=== PATIENT | male | born 1975 | race Caucasian/White ===

== ENCOUNTER 2017-04-02 20:32 | Emergency (ER) | payer MEDICARE ==
[~2017-04-02] VITALS: Ht 175.3 cm; Wt 72.6 kg
[2017-04-02] MEDS ORDERED: ASPIRIN 325 MG TABLET ONE (21:12)
--- NOTE | 2017-04-02 21:21 | NUR ---
PT IS VERBALLY ABUSIVE TOWARDS STAFF. REASSIGN THE PT TO ANOTHER NURSE.
[2017-04-02] MEDS ORDERED: ASPIRIN 325 MG TABLET PO ONE (21:30)
[2017-04-02] MEDS ORDERED: LORAZEPAM INJ 2 MG/ML VIAL IV ONE (21:30)
--- NOTE | 2017-04-02 21:30 | NUR ---
PT REFUSED CHEST XRAY.
--- NOTE | 2017-04-02 21:31 | NUR ---
PT REFUSING CXR, RN BENJA IS AWARE.
--- NOTE | 2017-04-02 21:31 | NUR ---
PT REFUSED IV INSERTION IN THE UPPER EXTREMITIES. TRIED INSERTING AN IV IN THE LEG WHERE HE PREFERS TO GET POKED. IV INSERTION ATTEMPTED FEW TIMES AND UNABLE TO GET A PATENT LINE.
[2017-04-02] MEDS ORDERED: LORAZEPAM INJ 2 MG/ML VIAL ONE (21:40)
[2017-04-02] MEDS ORDERED: LORAZEPAM INJ 2 MG/ML VIAL IM ONE (22:00)
[2017-04-02 23:57] LABS: BASOPHILS % (AUTO) 0.5 % (0.0-2.0); EOSINOPHILS # (AUTO) 0.2 /CMM (0.0-0.7); EOSINOPHILS % (AUTO) 2.7 % (0.0-6.0); HEMATOCRIT 33 % (39-51); HEMOGLOBIN 10.8 g/dL (13.5-17.5); LYMPHOCYTES # (AUTO) 1.5 /CMM (0.8-4.8); LYMPHOCYTES % (AUTO) 18.9 % (20.0-44.0); MEAN CORPUSCULAR HEMOGLOBIN 25 PG (26.0-33.0); MEAN CORPUSCULAR HGB CONC 33 g/dl (31.0-36.0); MEAN CORPUSCULAR VOLUME 76 fL (80-96); MONOCYTES # (AUTO) 0.4 /CMM (0.1-1.30); MONOCYTES % (AUTO) 4.8 % (2.0-12.0); NEUTROPHILS # (AUTO) 5.8 /CMM (1.8-8.9); NEUTROPHILS % (AUTO) 73.1 % (43.0-81.0); PLATELET COUNT (AUTO) 311 /CMM (150-450); RDW COEFFICIENT OF VARIATION 26.4 (11.5-15.0); RED BLOOD CELL COUNT(AUTO) 4.25 MIL/uL (4.5-6.0); WHITE BLOOD COUNT (AUTO) 7.9 K/uL (4.3-11.0)
--- NOTE | 2017-04-03 | NUR ---
22G LEFT LOWER LEG IV STARTED. BLOOD SAMPLE OBTAINED AND SENT TO LAB
[2017-04-03 00:09] LABS: CALCIUM, SERUM 8.8 mg/dL (8.5-10.1); CARBON DIOXIDE 25 mmol/L (21-32); CHLORIDE 111 mmol/L (98-107); CREATININE 0.9 mg/dL (0.6-1.3); GLUCOSE 110 mg/dL (74-106); POTASSIUM 3.6 mmol/L (3.5-5.1); SODIUM SERUM 146 mmol/L (136-145); UREA NITROGEN, BLOOD 14 mg/dL (7-18)
[2017-04-03 00:18] LABS: TROPONIN I < 0.017 ng/mL (0.00-0.056)
[2017-04-03 00:30] LABS: INR 1.02 (0.87-1.13); PROTHROMBIN TIME 10.6 SECS (9.5-12.7)
--- NOTE | 2017-04-03 04:13 | NUR ---
Patient discharged to home in stable condition. Written and verbal after care instructions given. Patient verbalizes understanding of instruction.IV removed. Catheter intact and site benign. Pressure and 4x4 applied to site. No bleeding noted.
[2017-04-03] MEDS ORDERED: LORA2TAB PO (13:45)
== END 2017-04-03 04:14 | disposition home or self-care (01) ==
LOC: ER 20:39
DX: R07.2 Precordial pain (principal); Z88.1 Allergy status to other antibiotic agents
CPT/HCPCS: 36415; 80048; 84484; 85025; 85730; 93005; 96372; 99285; J2060

== ENCOUNTER 2017-04-03 08:03 | Inpatient (IN) | payer MEDICARE ==
[~2017-04-03] VITALS: Ht 170.2 cm; Wt 72.6 kg
[2017-04-03] MEDS ORDERED: LORAZEPAM INJ 2 MG/ML VIAL IM ONE (08:30)
[2017-04-03] MEDS ORDERED: LORAZEPAM INJ 2 MG/ML VIAL ONE (08:35)
--- NOTE | 2017-04-03 11:00 | NUR ---
assume pt care. sleeping in bed. was given ativan. here for medication refill for ativan and wants a place to sleep. on monitor. stable vital. will continue to monitor.
--- NOTE | 2017-04-03 12:43 | NUR ---
pt is sleeping. on monitor w/ stable vitals. will cont to monitor.
--- NOTE | 2017-04-03 13:25 | NUR ---
pt is ok for discharge. pt states "im not feeling well and my wheelchaidr is not working." "i need to talk to a older adult social work specialist." md becker made aware.
--- NOTE | 2017-04-03 13:30 | NUR ---
PAGED SOPHIE GENERAL SERVICE OFFICER
[2017-04-03] MEDS ORDERED: LORA2TAB PO (13:45)
--- NOTE | 2017-04-03 14:25 | NUR ---
CALLED [employer] SUPERVISOR BRINE WAS PAGED.
--- NOTE | 2017-04-03 14:45 | NUR ---
pt is refusing body check stating "i dont have pressure sore in my buttocks, i have sores in my feet. pt is refusing iv start stating "i dont have any veins anymore."
[2017-04-03] MEDS ORDERED: LORAZEPAM 1 MG TABLET PO ONE (15:00)
--- NOTE | 2017-04-03 15:04 | NUR ---
report given to tabby. pt awaiting transfer to floor.
[2017-04-03 16:00] VITALS: BP 107/96
--- NOTE | 2017-04-03 16:16 | NUR ---
RN NOTES PT BROUGHT TO FLOOR FROM ER, ALERT AND ORIENTED. PT ON RA, RESPIRATIONS ARE EVEN AND UNLABORED. NO SIGNS OF DISTRESS NOTED. SAFETY MEASURES ARE IN PLACE, CALL LIGHT IS IN REACH. WILL CONTINUE TO MONITOR.
[2017-04-03] MEDS ORDERED: LORAZEPAM INJ 2 MG/ML VIAL IV PRN (17:30)
[2017-04-03] MEDS: LORAZEPAM 1 MG TABLET PO PRN ×2 (17:38→22:02)
--- NOTE | 2017-04-03 18:00 | NUR ---
RN NOTES PT BECAME AGGRESSIVE AND THREW THE DINNER TRAY BECAUSE "NO ONE GOT ME MY COFFEE". SECURITY WAS CALLED AND HE CALMED DOWN.
--- NOTE | 2017-04-03 18:53 | NUR ---
RN NOTES PT IS RESTING IN BED, NO SIGNS OF DISTRESS NOTED. PT CALMED DOWN AFTER COFFEE WAS GIVEN. PT REFUSED IV IN ER AND PT TOO AGGRESSIVE TO PUT ONE IN ON THE FLOOR. COLOSTOMY BAG WAS CHANGED. ALAMO CATHETER IS IN PLACE AND DRAINING. ATIVAN WAS GIVEN PO AT 1738. SAFETY MEASURES ARE IN PLACE, CALL LIGHT IS IN REACH. WILL ENDORSE TO BEHAVIORAL MEDICAL DIRECTOR RN FOR CONTINUITY OF CARE.
--- NOTE | 2017-04-03 19:50 | NUR ---
MS RN NOTE: PATIENT RESTING IN BED, NO ACUTE DISTRESS NOTED. BREATHING EVEN AND UNLABORED, NO SOB NOTED. COLOSTOMY IN PLACE. ALAMO CATHETER IN PLACE, EMPTY AT THIS TIME. BED LOCKED AND IN LOWEST POSITION, CALL LIGHT IN REACH. WILL CONTINUE TO MONITOR.
[2017-04-03 20:00] VITALS: BP 117/79
--- NOTE | 2017-04-03 22:15 | NUR ---
MS RN NOTE: PATIENT ANXIOUS AND REQUESTING FOR ATIVAN. ATIVAN 1MG ORAL GIVEN PER MD ORDER. WILL CONTINUE TO MONITOR.
[2017-04-04] MEDS: LORAZEPAM 1 MG TABLET PO PRN ×4 (02:08→20:15)
--- NOTE | 2017-04-04 02:15 | NUR ---
MS RN NOTE: PATIENT ANXIOUS AND REQUESTING FOR ATIVAN. ATIVAN 1MG ORAL GIVEN PER MD ORDER. WILL CONTINUE TO MONITOR.
--- NOTE | 2017-04-04 06:30 | NUR ---
MS RN NOTE: PATIENT RESTING IN BED, NO ACUTE DISTRESS NOTED. BREATHING EVEN AND UNLABORED, NO SOB NOTED. COLOSTOMY IN PLACE. ALAMO CATHETER IN PLACE. PATIENT ANXIOUS AND IRRITATED, ATIVAN 1MG ORAL GIVEN PER MD ORDER. BED LOCKED AND IN LOWEST POSITION, CALL LIGHT IN REACH. WILL ENDORSE TO DAY NURSE TO CONTINUE WITH PLAN OF CARE.
--- NOTE | 2017-04-04 07:30 | NUR ---
PT RECEIVED RESTING COMFORTABLY IN BED WITH EYES CLOSED. NO S/S OR C/O PAIN OR DISTRESS NOTED. SIDE RAILS UP X2, CALL LIGHT LEFT WITHIN REACH. WILL CONTINUE PLAN OF CARE.
[2017-04-04 08:00] VITALS: BP 105/70
--- NOTE | 2017-04-04 11:06 | NUR ---
Social service consult requested by Dr. Grady for placement and possible homelessness. Pt. is a 42 year old paraplegic male who was admitted to [facility] for Benzodiazepine withdrawal. Pt. was cleared from ED yesterday for discharge, however pt. needed placement and was admitted to [facility]. SHAHIDA and egg caser Arley met with pt. bedside. Pt. is alert and oriented x 2. Pt. was not very cooperative during the assessment and requested for SW to come back later when he is not sleepy. SW to continue assessment later this afternoon when pt. is more alert and willing to cooperate. Addendum: 04/04/17 at 1451 by JOELLE PINEDO SW went back again to assess pt. Pt. was still not cooperative and informed SHAHIDA that he needs skilled placement. SHAHIDA inquired with pt. if he has been in a SNF within the last three months. Pt. stated he has not been in a snf and has been living in the streets. SHAHIDA informed egg caser Nikki regarding pt. wanting snf placement.
[2017-04-04 16:16] VITALS: BP 130/83
--- NOTE | 2017-04-04 18:56 | NUR ---
CHANGE OF SHIFT REPORT PT RESTING COMFORTABLY IN BED WITH EYES CLOSED. NO S/S OR C/O PAIN OR DISTRESS NOTED. SIDE RAILS UP X2, CALL LIGHT LEFT WITHIN REACH. PT KEPT CLEAN, DRY, AND COMFORTABLE. NO SIGNIFICANT CHANGES SINCE PREVIOUS SHIFT. WILL GIVE REPORT TO TOMMY RODRIGUEZ.
--- NOTE | 2017-04-04 19:30 | NUR ---
RN NOTE; RECEIVED PT IN BED LAYING DOWN. PASSIVE AND REFUSING ASSESSMENT. BREATHING EVENLY. NO SOB. NAD. NO C/O PAIN OR DISCOMFORT. F/C IN PLACE DRAINING CLEAR YELLOW URINE. CALL LIGHT WITHIN REACH,. WILL CONT TO MONITOR ,
--- NOTE | 2017-04-04 20:15 | NUR ---
ATIVAN PO GIVEN FOR C/O ANXIETY. WILL CONT TO MONITOR ,
--- NOTE | 2017-04-04 22:00 | NUR ---
PT W/ PARTIAL THICKNESS LOSS ON THE SACRAL AND BILATERAL AREA. DRESSING WAS CHANGES AND CLEANED AND DRIED. PT REFUSING FULL SKIN AND BODY CHECK . ALSO REFUSED TAKING PICTURES. ALSO NOTED W/ BILATERAL FEET DRESSING AND COVERED WITH KERLIX . PT REFUSED SKIN CARE AT THIS TIME. WILL CONT TO MONITOR .
[2017-04-05] MEDS: LORAZEPAM 1 MG TABLET PO PRN ×6 (00:16→23:28)
--- NOTE | 2017-04-05 00:16 | NUR ---
ATIVAN PO GIVEN FOR C/O ANXIETY. WILL CONT TO MONITOR ,
--- NOTE | 2017-04-05 04:16 | NUR ---
ATIVAN PO GIVEN FOR C/O ANXIETY. WILL CONT TO MONITOR ,
--- NOTE | 2017-04-05 07:00 | NUR ---
PT RESTING COMFORTABLY IN BED. BREATHING EVENLY. NO SOB. NO C/O PAIN OR DISCOMFORT. NO ACUTE EVENT DURING THE NIGHT. NEEDS ATTENDED , CLEANED AND DRIED, ASSISTED W/ REPOSITIONING. CALL LIGHT WITHIN REACH . WILL CONT TO MONITOR AND WILL ENDORSE TO AM SHIFT FOR DEB.
[2017-04-05 08:00] VITALS: BP 117/63
--- NOTE | 2017-04-05 08:24 | NUR ---
RN MS INITIAL NOTES Received pt laying in bed with HOB elevated. Respirations are even and unlabored, not in any acute distress noted. Denies any pain at this time. Will continue to monitor throughout shift and render needs.
[2017-04-05] MEDS: MENTHOL/CETYLPYRD (CEPACOL) 1 LOZ LOZENGE PO PRN ×3 (12:17→18:13)
--- NOTE | 2017-04-05 13:41 | NUR ---
SHAHIDA and case mangmoriah Salmon met with pt. to discuss discharge plan. Pt. states he is willing to go to a board and care facility. Pt. receives approximately $700/ month in social security income. correctional manager Luis Antonio to assist in finding board and care for the pt. Addendum: 04/05/17 at 1343 by JOELLE PINEDO Pt. is paraplegic and has an electric wheelchair. Pt. needs assistance with ADL's.
[2017-04-05 16:07] VITALS: BP 100/68
--- NOTE | 2017-04-05 19:30 | NUR ---
RN NOTES RECEIVED PT. AWAKE ON BED, A/OX3, NO IV HEPLOCK, REFUSED BODY ASSESSMENT, REFUSED HELP, JUST WANT HIS ATIVAN, RUDE, CALL LIGHT WITHIN REACH, [id number] CONTINUE TO MONITOR
[2017-04-05 20:00] VITALS: BP 113/66
--- NOTE | 2017-04-05 20:09 | NUR ---
RN MS CLOSING NOTES All needs met and rendered. All due medications given w/ no ASE noted. a/o x4, respirations are even and unlabored, not in any acute distress noted. Denies any pain during shift. Requested for PRN ativan. Pt seen and examined by Dr. Winters with new orders for cepacol due to sore throat, noted to be effective. Pt refused skin assessment and pictures for documentation. Encouraged pt to reposition q2h and prn to prevent further skin injuries. Colostomy bag was changed today by pt, emptied falcon cath with 800cc, clear/yellow urine, denies bladder discomfort. Endorsed to next shift for continuity of care.
--- NOTE | 2017-04-05 20:30 | NUR ---
RN NOTES PT CALLED AND ASKING ME THAT HE'S GOING TO LEAVE AND WERE ASKING FOR AMA PAPER., WHEN I WENT TO HIS ROOM HIS COLOSTOMY BAG WAS ON THE FLOOR, I ASKED THE PT. ABOUT IT AND HE SAID "IT FELL OFF" AND WAS CALLING US ASSHOLE. HE DOESN'T LET ME PUT A NEW ONE AND DOESN'T LET ME CLEAN THE AREA. HE WAS SCREAMING AT US HE JUST WANT THE AMA PAPER .THAT'S WHY I CALLED THE AUTOMOTIVE SERVICE CONSULTANT. HE EVEN ASKED ME TO CALL THE DOCTOR FOR THE PRESCRIPTION OF ATIVAN EVEN IF I TOLD HIM THAT THE DOCTOR WERE NOT GOING TO GIVEN A PRESCRIPTION FOR PT. LEAVING AMA BUT STILL PT. DOESN'T WANT TO LISTEN. I CALLED THE AUTOMOTIVE SERVICE CONSULTANT.AND MAKE HIM AWARE THE SITUATION.
--- NOTE | 2017-04-05 21:30 | NUR ---
RN NOTES PT ASKED FOR PAIN MEDICATION. CALLED DR. VILLAR AND ASKED FOR PAIN MEDICATION, DR. VILLAR ONLY ORDER, TYLENOL 650MG PO , ORDER NOTED AND CARRIED OUT
--- NOTE | 2017-04-05 21:40 | NUR ---
RN NOTES PT STATED THAT HE'S NOT TAKING TYLENOL AND NOW HE WANTS AMBIEN 10 MG PO, SPOKE TO DR. VILLAR AND INFORMED HIM THAT PT.'S WANTS [id number] MG .. DR. VILLAR DID NOT ORDER ANY SLEEPING PILL
--- NOTE | 2017-04-05 21:45 | NUR ---
RN NOTES PT. STATED THAT HE'S GOING TO LEAVE AGAIN , SPOKE TO DR. VILLAR ABOUT IT AND HE SAID OK. PT REQUESTED FOR A TAXI AND HE'S GOING TO PAY FOR HIS TAXI
--- NOTE | 2017-04-05 21:55 | NUR ---
RN NOTES FINALLY WE FOUND A A TAXI WHO HAS A WHEELCHAIR ACCESS BUT THE PT. DOESN'T WANT TO LEAVE AGAIN . HE STATED HE'S GOING TO LEAVE IN THE MORNING INSTEAD
[2017-04-05] MEDS ORDERED: ACETAMINOPHEN 325 MG TABLET PO PRN (22:00)
--- NOTE | 2017-04-05 23:31 | NUR ---
RN NOTES COMPLAINED OF FEELING ANXIOUS- ATIVAN 1 MG PO GIVEN ORDERED, V/S STABLE
[2017-04-06] MEDS: LORAZEPAM 1 MG TABLET PO PRN ×4 (04:32→18:51)
--- NOTE | 2017-04-06 04:34 | NUR ---
RN NOTES COMPLAINED OF FEELING ANXIOUS- ATIVAN 1 MG PO GIVEN ORDERED, V/S STABLE
--- NOTE | 2017-04-06 07:00 | NUR ---
RN NOTES AWAKE, STILL HARD HEADED.. REFUSED MORNING CARE
--- NOTE | 2017-04-06 07:50 | NUR ---
RN MS INITIAL NOTES Received pt awake, sitting up in bed. Respirations are even and unlabored, not in any acute distress noted. Denies any pain at this time. Asked pt what his goal is for today and he stated to "leave me alone." Reminded him to use call light when assistance is needed and placed call light within reach. Will continue to monitor throughout shift and render needs.
--- NOTE | 2017-04-06 09:47 | NUR ---
RN NOTES Patient refused morning vital signs. Pt is not in any acute distress and in stable condition at this time. will continue to monitor throughout shift.
[2017-04-06] MEDS: MENTHOL/CETYLPYRD (CEPACOL) 1 LOZ LOZENGE PO PRN (18:12)
[2017-04-06 18:47] VITALS: BP 121/88
--- NOTE | 2017-04-06 19:24 | NUR ---
RN MS Closing Notes All needs met and rendered. All due medications given with no ASE noted. A/o x3 , respirations are even and unlabored, not in any acute distress noted. C/o pain 8/10 to right foot. Seen and examined by TRACTOR SWEEPER OPERATOR Wilcox with orders for Morphine 1MG IV q3hrs PRN, noted with effectiveness. New peripheral IV inserted to Right wrist, tolerated procedure well. IV site kept patent, dressing kept clean and dry. Pt will be NPO post midnight for surgery tomorrow for debridement of the left foot ulceration and right great toe first ray amputation. Informed consents signed by pt with daughter at bedside. Endorsed to next shift for continuity of care.
--- NOTE | 2017-04-06 19:30 | NUR ---
DIRECTOR CLIENT SERVICES NOTES PATIENT WITH DISCHARGE ORDERS, ALL DISCHARGE ORDERS AND INSTRUCTIONS GIVEN TO PT AND REVIEWED PT GOING TO BOARD AND CARE PRESCRIPTIONS GIVEN TO PT, PT WITH NO IV ACCESS DURING HOSPITALIZATION. PT WITH CONTINUED REFUSAL OF BODY CHECK PT WITH SUPRAPUBIC CATHETER IN PLACE DRAINING CLEAR YELLOW URINE DRESSINGS ON BILATERAL FEET IN PLACE PT REFUSED CHANGE OF DRESSING. PT ASSISTED TO LOBBY IN STABLE CONDITION LEFT WITH ALL PERSONAL BELONGINGS DISCHARGED TO BOARD CARE WITH TAXI TRANSPORT WITH [employer]
--- NOTE | 2017-04-06 19:38 | NUR ---
RN Closing notes addendum RN closing notes-- incorrect patient.
== END 2017-04-06 19:30 | disposition home or self-care (01) | DRG 896 ==
LOC: ER 08:06 → MEDSG2 14:59
PROVIDERS: ADMIT Internal Medicine; ATTEND Internal Medicine
DX: F13.239 Sedative, hypnotic or anxiolytic dependence with withdrawal, unspecified (principal); G82.50 Quadriplegia, unspecified; F13.20 Sedative, hypnotic or anxiolytic dependence, uncomplicated; Z59.0 Homelessness; Z87.891 Personal history of nicotine dependence; F41.9 Anxiety disorder, unspecified; D64.9 Anemia, unspecified; Z88.1 Allergy status to other antibiotic agents; F32.9 Major depressive disorder, single episode, unspecified; Z87.828 Personal history of other (healed) physical injury and trauma
CPT/HCPCS: 87081-TC; A4606; A6402; J2060; Z7610

== ENCOUNTER 2019-08-05 12:16 | Inpatient (IN) | payer MEDICAID, MEDICARE, SELFPAY ==
[2019-08-05] VITALS (8 sets, daily range): BP systolic 85–142; BP diastolic 38–92
[~2019-08-05] VITALS: Ht 127 cm; Wt 68.0 kg
[~2019-08-05 12:16] MED LIST: LORA2TAB PO
[2019-08-05] MEDS ORDERED: IV NS 0.9% 500 ML BAG IV ONE ×2 (13:00→18:30)
[2019-08-05 13:01] LABS: APPEARANCE,URINE SLIGHTLY CLOUDY (CLEAR); BILIRUBIN,URINE Negative (NEGATIVE); BLOOD, URINE Negative Ery/uL (NEGATIVE); COLOR,URINE Yellow (YELLOW); KETONES,URINE Negative (NEGATIVE); LEUKOCYTE ESTERASE ,URINE Small (NEGATIVE); NITRITE, URINE Negative (NEGATIVE); PROTEIN,URINE Trace mg/dl (NEGATIVE); UGLUCOSE Negative (NEGATIVE); UROBILINOGEN,URINE 0.2 EU/dL (0.2)
[2019-08-05 13:08] LABS: BACTERIA,URINE Few /HPF (None Seen); RBC,URINE 0-1 /HPF (0-2); SQUAMOUS EPITHELIAL CELL,UR Few /HPF (None Seen)
[2019-08-05 13:09] LABS: URINE AMORPHOUS PHOSPHATES Few /HPF (None Seen)
[2019-08-05 13:32] LABS: BASOPHILS % (AUTO) 0.4 % (0.0-2.0); EOSINOPHILS % (AUTO) 1.4 % (0.0-6.0); HEMATOCRIT 30 % (39-51); HEMOGLOBIN 9.1 g/dL (13.5-17.5); LYMPHOCYTES # (AUTO) 1.1 /CMM (0.8-4.8); LYMPHOCYTES % (AUTO) 9.1 % (20.0-44.0); MEAN CORPUSCULAR HGB CONC 31 g/dl (31.0-36.0); MEAN CORPUSCULAR VOLUME 75 fL (80-96); MONOCYTES # (AUTO) 0.4 /CMM (0.1-1.30); MONOCYTES % (AUTO) 3.9 % (2.0-12.0); NEUTROPHILS # (AUTO) 9.8 /CMM (1.8-8.9); NEUTROPHILS % (AUTO) 85.2 % (43.0-81.0); PLATELET COUNT (AUTO) 499 /CMM (150-450); RED BLOOD CELL COUNT(AUTO) 4.01 MIL/uL (4.5-6.0); WHITE BLOOD COUNT (AUTO) 11.5 K/uL (4.3-11.0)
--- NOTE | 2019-08-05 13:41 | NUR ---
RADHA FROM [facility], FOUND LYING ON A WALK WAY. TO ER BED 6. AAOX3. NOT IN RESP DISTRESS, BREATHING EVEN AND UNLABORED. NON AMBULATORY. NOTED BILAT LOWER LEG AMPUTATION. BROUGHT IN FOR WEAKNESS. PER PT, HE WAS RECENTLY RELEASE FROM THE HOSPITAL 2 WEEKS AGO AND HAS BEEN PROGRESSIVELY GETTING WEAK. PT IS LETHARGIC ON PRESENTATION. PT HAVE A URINARY CATH INPLACE, PATENT AND DRAINING. YELLOW URINE WITH SEDIAMENTS. PT ALSO WAS NOTED WITH A PRESSURE ULCER ON HIS LEFT ELBOW. WAS AT BESIDE JASON SIGALA. ORDERS RECEIVED, NOTED AND CARRIED OUT. EKG DONE. URINE COLLECTED AND SENT TO LAB, PENDING IV LINE AND BLOOD DRAW
[2019-08-05 14:04] LABS: CALCIUM, SERUM 8.7 mg/dL (8.5-10.1); CARBON DIOXIDE 22 mmol/L (21-32); CHLORIDE 103 mmol/L (98-107); CREATININE 0.8 mg/dL (0.6-1.3); GLUCOSE 98 mg/dL (74-106); SODIUM SERUM 136 mmol/L (136-145); UREA NITROGEN, BLOOD 23 mg/dL (7-18)
[2019-08-05] MEDS ORDERED: MEROPENEM 1,000 MG in IV NS 0.9% 100 ML IV ONE (14:30)
[2019-08-05] MEDS ORDERED: IV NS 0.9% 1,000 ML IV ONE (14:30)
--- NOTE | 2019-08-05 14:48 | NUR ---
PT IS HARD STICK DESPITE MULTIPLE ATTEMPT. EUSEBIO, RN SUP NOTIFIED FOR MIDLINE/PICCLINE INSERTION
--- NOTE | 2019-08-05 15:12 | NUR ---
PT TO CT ON [place]
--- NOTE | 2019-08-05 15:15 | NUR ---
RUBIA, PICC LINE NURSE AT BEDSIDE.
[2019-08-05 15:30] LABS: ALANINE AMINOTRANSFERASE 55 U/L (12-78); ALBUMIN 2.6 g/dL (3.4-5.0); ALKALINE PHOSPHATASE 134 U/L (46-116); BILIRUBIN,TOTAL 0.4 mg/dL (0.2-1.0); TOTAL PROTEIN, SERUM 8.6 g/dL (6.4-8.2)
[2019-08-05 15:36] LABS: ASPARTATE AMINOTRANSFERASE 99 U/L (15-37)
--- NOTE | 2019-08-05 17:13 | NUR ---
R FEMORAL PICC LINE INSERTED BY PICC LINE NURSE AT BEDSIDE. RUBIA, PICC NURSE CONFIRMED PLACEMENT AND OK TO USE LINE.
--- NOTE | 2019-08-05 18:13 | NUR ---
PT FLUID HYDRATION COMPLETED AND BP NOTED 82/50. MD MADE AWARE. RECEIVED ORDER TO GIVEN ANOTHER BAG 0F NS 500ML BOLUS X 1 THEN REPORT BP TO MD AFTER INFUSION.
--- NOTE | 2019-08-05 18:53 | NUR ---
BP AFTER ADDITIONAL NS 500ML BOLUS IS 113/58 HR 100. MADE AWARE. NNO RECEIVED AT THIS TIME
--- NOTE | 2019-08-05 19:15 | NUR ---
pt noted with bp 90/67 hr 94. md made aware. order received to start on levophed.
--- NOTE | 2019-08-05 19:29 | NUR ---
PHARMACY INFORMED REGARDING LEVOPHED ORDER
[2019-08-05] MEDS ORDERED: NOREPINEPHRINE 8 MG in IV NS 0.9% 242 ML IV PRN (19:30)
--- NOTE | 2019-08-05 19:35 | NUR ---
URINE OUTPUT FROM F/C: 1400ML
--- NOTE | 2019-08-05 20:29 | NUR ---
BED ASSIGNMENT 261
--- NOTE | 2019-08-05 20:30 | NUR ---
PT NOTED WITH 02 SAT @ 86% TITRATED TO 6LPM VIA NC. STILL NOTED @ 88%. PLACED ON 02 VIA FACEMASK AT 10LMP STILL NOTED AT 90%. MADE AWARE. ORDER RECEIVED TO GIVE NARCAN. NOTED AND CARRIED OUT
[2019-08-05] MEDS: NALOXONE HCL 0.4 MG/ML AMPUL IV PRN ×3 (20:35→20:43)
[2019-08-05] MEDS ORDERED: NALOXONE HCL 0.4 MG/ML AMPUL ONE ×2 (20:35→20:40)
--- NOTE | 2019-08-05 20:48 | NUR ---
PT AWAKE AFTER X 2 DOSE OF NARCAN 0.4MG IV. PT IS AWAKE. O2 SAT NOTED 93%-94% ON 10LPM VIA FACE MASK. MD SHEPPARD
--- NOTE | 2019-08-05 20:58 | NUR ---
REPORT GIVEN TO JENNIFER APPLE FOR DEB.
[2019-08-05] MEDS ORDERED: NALOXONE HCL 4 MG in IV NS 0.9% 240 ML IV PRN ×2 (21:00→23:30)
--- NOTE | 2019-08-05 21:30 | NUR ---
PT'S O2 TITRARTED DOWN TO 6LPM VIA FACEMASK, O2 SAT NOTED @ 96%. TOLERATING WELL
--- NOTE | 2019-08-05 21:30 | NUR ---
COVID SWAB DONE AND SENT TO LAB
--- NOTE | 2019-08-05 21:38 | NUR ---
VOGEL SWAB COLLECTED AND SENT TO LAB
--- NOTE | 2019-08-05 21:45 | NUR ---
S[place]ER: RECEIVED PT FROM ED FOR LEFT ELBOW WOUND WT CELLULITIS. EYES CLOSED, ABLE TO WAKE UP AND MAKE NEEDS KNOWN BUT STILL LETHARGIC. RECEIVED ON LEVOPHED AT 0.1MCG/KG/MIN FOR BP SUPPORT AND NARCAN DRIP AT 0.4MG/HR. ON 6L 02 VIA SIMPLE FACE MASK WT 02 SAT 96% AND ABOVE. NO EVIDENCE OF DISCOMFORT. BODY ASSESSMENT DONE WT MULT. SKIN ISSUES. PICS TAKEN. SINUS RHYTHM ON MONITOR. AFEBRILE. SUPRAPUBIC IN PLACE DRAINING CLOUDY YELLOW URINE TO GRAVITY. COLOSTOMY NOTED WT SOFT BROWN STOOL. SAFETY PRECAUTION NOTED. WILL CONTINUE TO MONITOR.
--- NOTE | 2019-08-05 21:53 | NUR ---
PT TRANSPORTED TO UNIT ON [place] WITH EMT AND RN AT BEDSIDE W/ ACLS PROTOCOL. NAD NOTED. PT IS ARROUSABLE.
[2019-08-05] MEDS ORDERED: ACETAMINOPHEN 325 MG TABLET PO PRN (23:30)
[2019-08-05] MEDS ORDERED: ONDANSETRON HCL/PF 4 MG/2 ML VIAL IVP PRN (23:30)
[2019-08-05] MEDS ORDERED: Z GUARD REMEDY 2 OZ OINT TP PRN (23:30)
[2019-08-05] MEDS ORDERED: CEFTRIAXONE 1 G in IV D5W 50 ML IV SCH (23:30)
[2019-08-05] MEDS ORDERED: ENOXAPARIN SODIUM 40 MG/0.4 ML DISP.SYRIN SQ SCH (23:30)
[2019-08-05] MEDS ORDERED: PIPERACILLIN /TAZOBACTAM 3.375 G VIAL IV ONE (23:50)
[2019-08-06] VITALS (83 sets, daily range): BP systolic 60–133; BP diastolic 28–84
[2019-08-06] MEDS ORDERED: NALOXONE HCL 4 MG in IV NS 0.9% 240 ML IV PRN ×2
[2019-08-06] MEDS: IV NS 0.9% 1,000 ML IV PRN (00:02)
--- NOTE | 2019-08-06 00:03 | NUR ---
CLIENT EXECUTIVE: PT REFUSED LAB DRAW AT THIS TIME. EXPLAINED RISKS AND BENEFITS. STILL REFUSED. WILL TRY AGAIN LATER.
[2019-08-06] MEDS ORDERED: VANCOMYCIN 1.5 GM in IV D5W 500ml IV ONE (00:30)
[2019-08-06] MEDS ORDERED: VANCOMYCIN 1 GM VIAL ONE (00:32)
--- NOTE | 2019-08-06 00:47 | NUR ---
RN/ICU-PRONOUNCEMENT OF :CODE STATUS"DO NOT RESUSCITATE".PT. UNRESPONSIVE TO ANY FORM OF STIMULI. PUPILS ARE FIXED AND DILATED. EKG ASYSTOLE X 2 LEADS. HEART TONES ARE ABSENT. APNEIC, RESPIRATIONS ARE ABSENT. NO SIGNS OF LIFE. PRONOUNCED AT 08/05 BY:FRANCOIS JONES RN Addendum: 08/06/19 at 0643 by ALESSIA ANDREWS RN RN/ICU- DISREGARD ABOVE NOTE. THIS IS AN ERROR ,INTENDED FOR PT.259 JUNIOR HALLMAN..........
[2019-08-06 05:08] LABS: BASOPHILS # (AUTO) 0.1 /CMM (0.0-0.2); BASOPHILS % (AUTO) 0.7 % (0.0-2.0); EOSINOPHILS % (AUTO) 2.1 % (0.0-6.0); HEMATOCRIT 29 % (39-51); HEMOGLOBIN 8.6 g/dL (13.5-17.5); LYMPHOCYTES # (AUTO) 1.1 /CMM (0.8-4.8); LYMPHOCYTES % (AUTO) 8.2 % (20.0-44.0); MEAN CORPUSCULAR HGB CONC 30 g/dl (31.0-36.0); MEAN CORPUSCULAR VOLUME 75 fL (80-96); MONOCYTES # (AUTO) 0.5 /CMM (0.1-1.30); MONOCYTES % (AUTO) 3.8 % (2.0-12.0); NEUTROPHILS # (AUTO) 11.7 /CMM (1.8-8.9); NEUTROPHILS % (AUTO) 85.2 % (43.0-81.0); PLATELET COUNT (AUTO) 411 /CMM (150-450); RED BLOOD CELL COUNT(AUTO) 3.78 MIL/uL (4.5-6.0); WHITE BLOOD COUNT (AUTO) 13.7 K/uL (4.3-11.0)
[2019-08-06 05:25] LABS: ALBUMIN 2.2 g/dL (3.4-5.0); BILIRUBIN,TOTAL 0.5 mg/dL (0.2-1.0); CALCIUM, SERUM 8.2 mg/dL (8.5-10.1); CREATININE 0.7 mg/dL (0.6-1.3); MAGNESIUM 2.1 mg/dL (1.8-2.4); PHOSPHORUS 3.5 mg/dL (2.5-4.9); POTASSIUM 3.7 mmol/L (3.5-5.1); TOTAL PROTEIN, SERUM 7.2 g/dL (6.4-8.2)
[2019-08-06 05:26] LABS: THYROID STIMULATING HORMONE 0.591 uIU/mL (0.358-3.74)
[2019-08-06] MEDS ORDERED: PIPERACILLIN /TAZOBACTAM 3.375 G VIAL IV ONE (05:59)
[2019-08-06] MEDS: PIPERACILLIN /TAZOBACTAM 3.375 G in IV D5W 50 ML IV SCH ×5 (06:00→18:23)
--- NOTE | 2019-08-06 06:25 | NUR ---
TWISTER TENDER PAPER: CALLED AND NOTIFIED DR. CENTENO OF CRITICAL TROPONIN=3.503 (MADE AWARE THAT PT REFUSED 2ND TROPONIN DRAW). PT HAS ALSO BEEN AWAKE AND ALERT SINCE 0400 AND NARCAN HAS BEEN HELD SINCE THEN. MD EASTMAN ORDERS TO DC NARCAN DRIP, START HEPARIN DRIP FOR ACS PROTOCOL, 2D ECHO AND TROPONIN DRAW AT 1200. NOTED AND CARRIED OUT ORDERS. PT NOW ON LEVOPHED AT 0.06MCG/KG/MIN FOR BP SUPPORT AND ON 2L 02 VIA ADITYA WT NO ACUTE DISTRESS. NO EVIDENCE OF DISCOMFORT. WILL CONTINUE TO MONITOR.
[2019-08-06] MEDS ORDERED: HEPARIN INFUSION/D5W 500 ML IV PRN ×2 (06:30→07:00)
--- NOTE | 2019-08-06 07:20 | NUR ---
SUPERINTENDENT PLANT PROTECTION: ENDORSED TO DAY SHIFT RN TO ASK MD WHEN TO START HEPARIN DRIP PT ALREADY HAD A DOSE OF LOVENOX DURING THE SHIFT.
[2019-08-06] MEDS ORDERED: FEE PK DOSING 1 MIN EA MC ONE (07:45)
--- NOTE | 2019-08-06 07:59 | NUR ---
RN NOTE SPOKE TO DR HINSON REGARDING WHEN TO START THE HEPARIN DRIP, LET THE DR KNOW THAT LOVENOX WAS GIVEN AT MIDNIGHT, DR HINSON SAID THAT HE WILL PUT IN THE ORDER ON WHEN TO START THE DRIP. WAITING ON ORDERS. SAFETY MAINTAINED, CALL LIGHT WITHIN REACH, WILL CONTINUE TO MONITOR.
--- NOTE | 2019-08-06 08:01 | NUR ---
WOUND CARE CONSULT: REVIEWED CHART, NURSING DOCUMENTATION AND ADMISSION PHOTOS WHICH SHOW MULTIPLE WOUNDS INCLUDING SACRAL/BUTTOCKS, RT KNEE AMPUTATION STUMP, LEFT ELBOW WOUND AND DISCOLORATION TO ARMS, ALL PRESENT ON ADMISSION. PER NURSING REPORT, PT HAS BILATERAL BELOW KNEE AMPUTATIONS. RECOMMENDATIONS MADE FOR SKIN PROTECTION. DISCUSSED WITH NURSING STAFF. RECOMMEND SURGICAL CONSULT. DR DICKSON NOTIFIED OF CONSULT REQUEST. PT ON JUNI ISOFLEX LOW AIRLOSS BED. IN AGREEMENT WITH PLAN OF CARE.
[2019-08-06] MEDS: PANTOPRAZOLE 40 MG TABLET.DR PO SCH (08:16)
--- NOTE | 2019-08-06 08:56 | NUR ---
RN NOTE DID ROUNDS WITH DR JIAN MD AWARE THAT THE PATIENT IS REFUSING LABS, TRIED TO TALK TO THE PATIENT, PT IGNORED THE DR. DR WILL TRY TO SPEAK TO THE PATIENT AGAIN AT A LATER TIME. SAFETY MAINTAINED, CALL LIGHT WITHIN REACH, WILL CONTINUE TO MONITOR.
[2019-08-06] MEDS: POTASSIUM CHLORIDE 20 MEQ TAB.PRT.SR PO SCH ×2 (09:00→09:45)
[2019-08-06] MEDS: ASPIRIN 81 MG TAB.CHEW PO SCH ×2 (09:00→09:45)
[2019-08-06 09:38] LABS: C-REACTIVE PROTEIN 11.8 mg/dL (0.0-0.9)
[2019-08-06] MEDS: VANCOMYCIN 1 GM in IV D5W 250ml IV SCH ×2 (09:45→17:18)
[2019-08-06] MEDS: ATORVASTATIN 10 MG TABLET PO SCH (09:46)
[2019-08-06] MEDS: ENOXAPARIN SODIUM 60 MG/0.6 ML DISP.SYRIN SQ SCH ×2 (09:48→21:06)
[2019-08-06] MEDS: NOREPINEPHRINE 8 MG in IV NS 0.9% 242 ML IV PRN (11:39)
[2019-08-06] MEDS: HYDROGEL DRESSING 90 GM TUBE TP SCH (12:00)
[2019-08-06] MEDS: DAKINS QUARTER STRENGTH (0.125%) 480 ML BOTTLE TOP SCH (12:00)
--- NOTE | 2019-08-06 13:35 | NUR ---
RN NOTE PATIENT KEEPS REMOVING HIS SPO2, NON COMPLIANT. REFUSED SOME OF HIS MORNING MEDS. ATTEMPTED TO REPLACE THE SPO2 FOR THE FOURTH TIME, PATIENT IS REFUSING AND KEEPS PULLING IT OFF. NO RESPIRATORY DISTRESS NOTED, RESPIRATIONS ARE EVEN AND UNLABORED, NO ACUTE DISTRESS NOTED.
[2019-08-06] MEDS: SOD FERRIC GLUC 125 MG in IV NS 0.9% 100 ML IV SCH (14:24)
--- NOTE | 2019-08-06 15:41 | NUR ---
SW CONSULT SHAHIDA consult was requested by regarding pts homelessness. Pt is a 44 year old male present in the ICU. Pt is currently a rule out for COVID so SHAHIDA was not able to meet with the pt at bedside. SHAHIDA spoke to JENNIFER Seo who stated that the pt is combative, refusing his medications, and is resistant/uncooperative to care. SHAHIDA was unable to meet with the pt and provide him with homeless resources at this time. SHAHIDA placed the resources in the pts chart and will follow up at a later time. Addendum: 08/06/19 at 1558 by JAC PINEDO Pts toxicology also came back positive for opiates, amphetamines, and benzodiazepines. Resources for substance abuse can also be found in the chart.
--- NOTE | 2019-08-06 17:59 | NUR ---
PT WAS NOT COMPLIANT AND REFUSED AN ECHOCARDIOGRAM EXAM. ADVISED ATTENDING RN.
--- NOTE | 2019-08-06 19:00 | NUR ---
RN CLOSING NOTES PATIENT REMAINED MOSTLY NON COMPLIANT THROUGHOUT THE SHIFT. ALLOWED ME TO REPOSITION HIM ONCE. REFUSED WOUND CARE. REFUSED TURNING FOR THE ASSESSMENT OF THE BACK. LEONOR WOUND RN NOTIFIED THAT UNABLE TO OBTAIN WOUND MEASUREMENT DUE TO PT REFUSING. PATIENT HAS REFUSED POTASSIUM AND ASPIRIN PO MEDS, EDUCATED PATIENT ON BENEFITS AND WHY HE NEEDS IT. VITAL SIGNS REMAINED STABLE THROUGHOUT THE SHIFT, PER MD ORDER WAS ATTEMPTING TO TAKE OFF THE LEVO DRIP BUT WAS UNABLE TO, PATIENT REMAINED ON LOW DOSE LEVO THROUGH OUT MY SHIFT. ALL PATIENT NEEDS MET, SAFETY WAS MAINTAINED, CALL LIGHT WITHIN REACH, ENDORSED TO PM NURSE TO FOR CONTINUITY OF CARE.
--- NOTE | 2019-08-06 21:15 | NUR ---
GRAIN PROCESSOR NOTE REPORT GIVEN TO NILESH RN FOR DEB. PT TRANSPORTED ACLS. PT TAKEN TO ROOM 101
--- NOTE | 2019-08-06 21:20 | NUR ---
RN NOTE RECEIVED PT FROM ICU FROM JENNIFER DIEHL.
[2019-08-06] MEDS: ZOLPIDEM TARTRATE 5 MG TABLET PO PRN (21:54)
--- NOTE | 2019-08-06 22:30 | NUR ---
RN NOTE CALLED [facility] [employer] AND SPOKE TO GEOVANNA WHO STATES THAT THEY WILL NOT PROCEED WITH CASE. CASE # [id number]. Addendum: 08/06/19 at 2350 by NILESH WALLS RN ERROR: WRONG CHART.
--- NOTE | 2019-08-06 22:35 | NUR ---
RN NOTE CALLED [employer]PER[employer] BOTTLE [employer]ACHIN[employer]'S OFFICE AND SPOKE TO KARMEN WHO STATES THEY WILL IT IS NOT A CASE FOR THEM. Addendum: 08/06/19 at 2351 by NILESH WALLS RN ERROR: WRONG CHART
--- NOTE | 2019-08-06 22:40 | NUR ---
JENNIFER RODRIGUEZ MADE AWARE OF PATIENT'S CHANGE IN CONDITION BY VAMSI LARA. FAMILY HAS YET TO DECIDE ON A MORTUARY AND WAS INSTRUCTED TO CALL [employer] OFFICE IN MORNING. Addendum: 08/07/19 at 0029 by NILESH WALLS RN ERROR: WRONG CHART
--- NOTE | 2019-08-06 23:10 | NUR ---
RN NOTE THREAD CHECKER ISAIAS FROM LAB OFFERED TO DRAW BLOOD (PTT) FROM PATIENT BUT PT STRONGLY REFUSED. EXPLAINED RISKS AND ADVANTAGES BUT PATIENT BECAME VERBALLY ABUSIVE AND YELLED "NO!". NOTIFIED ROBINSON LARA NP.
[2019-08-07] VITALS (67 sets, daily range): BP systolic 67–136; BP diastolic 34–85
--- NOTE | 2019-08-07 | NUR ---
RN NOTE PT NOTED WITH COLOSTOMY BAG TO BE 3/4 FULL. OFFERED TO CHANGE BAG BUT PT STRONGLY REFUSED. PT ALSO REFUSED TO BE TURNED AND REPOSITIONED AND HAVE LINENS CHANGED.
[2019-08-07] MEDS: PIPERACILLIN /TAZOBACTAM 3.375 G in IV D5W 50 ML IV SCH ×5 (00:07→23:31)
[2019-08-07] MEDS: VANCOMYCIN 1 GM in IV D5W 250ml IV SCH ×3 (00:47→17:00)
[2019-08-07] MEDS: IV NS 0.9% 1,000 ML IV PRN ×2 (02:14→15:00)
--- NOTE | 2019-08-07 05:35 | NUR ---
RN NOTE PT ALLOWED RN AND MEMBERSHIP DIRECTOR TO CHANGE COLOSTOMY BAG AND PATIENT GOWN DUE TO IT BEING SOILED. PT REFUSED TO BE TURNED AND REPOSITIONED. PT ALSO REFUSED LINEN CHANGE. RN OFFERED TO RENDER WOUND CARE ORDERED BUT PATIENT REFUSED DESPITE EXPLANATION OF RISKS AND ADVANTAGES. NOTIFIED CHARGE NURSE MELISSA. WILL CONTINUE TO MONITOR.
--- NOTE | 2019-08-07 06:03 | NUR ---
RN NOTE PATIENT REFUSED TO HAVE BLOOD DRAWN FOR AM LABS. EXPLAINED IMPORTANCE PT NEEDS TROPONIN TO BE REDRAWN. PT CONTINUES TO REFUSE AND BECAME VERBALLY ABUSIVE. EXPLAINED THAT MOTORCYCLE SUBASSEMBLY REPAIRER WILL COME BACK BEFORE 0800 TO OFFER TO DRAW BLOOD DRAWN AGAIN TO WHICH PATIENT REPLIED "OKAY FINE."
--- NOTE | 2019-08-07 06:48 | NUR ---
RN NOTE PT SLEEPING IN BED IN SEMI FOLWER'S POSITION. CURRENTLY ON ROOM AIR PT REFUSES TO HAVE O2 VIA NASAL CANULA AT THIS TIME. RESPIRATIONS EVEN AND UNLABORED. NO INDICATIONS OF PAIN OR DISCOMFORT. PT REFUSED WOUND CARE AND AM CARE. CURRENTLY ON LEVOPHED 0.05MCG/KG/MIN WITH HOURLY BLOOD PRESSURE MONITORING. ALSO WITH NS RUNNING AT 75ML/HOUR ORDERED VIA RIGHT FEMORAL TRIPLE LUMEN CATHETER. CALL LIGHT WITHIN REACH, SAFETY MEASURES IN PLACE, WILL ENDORSE TO MORNING RN FOR CONTINUATION OF CARE.
[2019-08-07] MEDS ORDERED: diphenhydrAMINE HCL 25 MG CAPSULE PO PRN (07:00)
--- NOTE | 2019-08-07 07:30 | NUR ---
sericulture teacher initial note received patient asleep, arousable, noted with oxygen off, patient refused to have oxygen on and refused to have saturation checked, stated "leave me alone" skin warm and dry to touch. no distress noted. on tele monitor sr. hob elevated. refused to be repositioned. side rails up and locked. bed kept at lowest position. call light kept within easy reach. will continue to monitor.
[2019-08-07] MEDS: PANTOPRAZOLE 40 MG TABLET.DR PO SCH (08:00)
[2019-08-07] MEDS: ASPIRIN 81 MG TAB.CHEW PO SCH (08:00)
[2019-08-07] MEDS: ATORVASTATIN 10 MG TABLET PO SCH (08:00)
--- NOTE | 2019-08-07 08:23 | NUR ---
precision agriculture specialist note clarified order to transfer to med surg with dr diehl, informed patient is still on levophed running at low dose. per md keep icu and titrate levo off, keep sbp >95.
[2019-08-07] MEDS: ENOXAPARIN SODIUM 40 MG/0.4 ML DISP.SYRIN SQ SCH (08:27)
--- NOTE | 2019-08-07 08:31 | NUR ---
sustainable agriculture faculty note patient awake alert and oriented, requested for benadryl, when benadryl pill was offered patient refused to take the medication and requested for iv benadryl, states po benadryl does not work for him.
--- NOTE | 2019-08-07 08:46 | NUR ---
curriculum assistant principal note seen and examined by dr dawson Addendum: 08/07/19 at 0847 by YAZAN RIZZO RN please add to note, patient spoke to md regarding request for morphine and dilaudid medication and bendryl iv.
[2019-08-07] MEDS: DAKINS QUARTER STRENGTH (0.125%) 480 ML BOTTLE TOP SCH (09:00)
[2019-08-07] MEDS: HYDROGEL DRESSING 90 GM TUBE TP SCH (09:00)
--- NOTE | 2019-08-07 09:30 | NUR ---
END USER CONSULTANT NOTE LAB AT BEDSIDE. PATIENT, UNABLE TO DRAW FROM PICC LINE, NO BLOOD RETURN. 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 WAS UNABLE TO DRAW LAB WORK
--- NOTE | 2019-08-07 10:04 | NUR ---
RAW JUICE WEIGHER NOTE INFORMED PHARMACIST AIDAN REGARDING PATIENT HARD STICK AND 0800 VANCO TROUGH WAS NOT ABLE TO BE DRAWN. PER AIDAN GIVE 0900 VANCOMYCIN AND DO TROUGH AT 1600. LAB INFORMED. WILL TRY AGAIN LATER.
[2019-08-07] MEDS: diphenhydrAMINE HCL 50 MG/ML VIAL IV PRN ×3 (10:54→22:40)
[2019-08-07] MEDS ORDERED: HYDROMORPHONE INJ 0.5 MG/0.5 ML SYRINGE IV PRN (11:00)
[2019-08-07] MEDS: NOREPINEPHRINE 8 MG in IV NS 0.9% 242 ML IV PRN ×3 (11:00→21:01)
[2019-08-07] MEDS: HYDROMORPHONE 1 MG/1 ML DISP.SYRIN IV PRN ×4 (11:18→23:31)
--- NOTE | 2019-08-07 14:04 | NUR ---
SHAHIDA NOTE: SHAHIDA contacted pts RN for an update on pts behavior. RN stated that pt is doing "okay" due to being on pain medication. Pts COVID test is negative and at this time there is no discharge date as pt is not medically stable. Addendum: 08/07/19 at 1618 by QING PINEDO SW unable to meet with him due to pt being drowsy and somnolent due to pain medication.
[2019-08-07] MEDS: SOD FERRIC GLUC 125 MG in IV NS 0.9% 100 ML IV SCH (15:43)
--- NOTE | 2019-08-07 15:52 | NUR ---
high school agriculture teacher note patient refused blood draw despite explanation for why blood needs to be drawn, patient refused.
--- NOTE | 2019-08-07 16:24 | NUR ---
curriculum manager note per dr dawson, telephone order received for patient to have psych consult
--- NOTE | 2019-08-07 18:29 | NUR ---
curriculum and assessment director note relayed to dr dawson patient eats and drinks large amounts. with orders to discontinue IVF. Informed patient is hardstick and vanco trough was not taken in the morning and this afternoon patient agreed to one more draw, clarified with md if remote sensing surveyor are unable to draw his blood, is it ok to continue vancomycin without trough, per md ok to continue without trough. pharmacy informed. will continue to monitor.
--- NOTE | 2019-08-07 19:03 | NUR ---
agricultural extension officer note relayed to pharmacy patient trough level 24, 1700 vancomycin was not given. per pharmacy don't give vancomycin.
--- NOTE | 2019-08-07 19:10 | NUR ---
INSURANCE ACCOUNT ASSISTANT OPENING NOTES RECEIVED PT ON BED AWAKE A/O X 4 ON RA SPO2 >95% WITH ONGOING LEVOPHED @ 0.06MCG/KG/MIN TO TITRATED TO MAINTAIN SBP>95, INFUSING WELL VIA FEMORAL TLC PT IS ON BED REST D/T BILATERAL AKA COLOSTOMY INTACT WITH FECAL MATTER NOTED, PT ON SUPRAPUBIC CATH WITH YELLOW URINE FLOWING VIA GRAVITY, ON TELE MONITOR SR 80'S, CONTACT ISOLATION FOR MRSA MAINTAINED, SAFETY PRECAUTION MAINTAINED CALL LIGHT WITHIN REACH WILL CONT TO MONITOR
[2019-08-07 19:25] LABS: ALBUMIN 1.9 g/dL (3.4-5.0); BILIRUBIN,TOTAL 0.1 mg/dL (0.2-1.0); CALCIUM, SERUM 7.9 mg/dL (8.5-10.1); CREATININE 1.1 mg/dL (0.6-1.3); MAGNESIUM 1.6 mg/dL (1.8-2.4); PHOSPHORUS 2.9 mg/dL (2.5-4.9); POTASSIUM 3.6 mmol/L (3.5-5.1); TOTAL PROTEIN, SERUM 6.5 g/dL (6.4-8.2)
[2019-08-07] MEDS: MUPIROCIN OINT 2% 22 GM TUBE SCH (20:26)
[2019-08-08] VITALS (65 sets, daily range): BP systolic 69–159; BP diastolic 29–92
--- NOTE | 2019-08-08 04:45 | NUR ---
SENIOR ACCOUNTING MANAGER NOTES PT REFUSED AM CARE COMPLAINING HE CANT TOLERATE TO BE TURN, EXPLAIN BENEFITS AND CONSEQUENCE BUT STILL REFUSED HE ONLY AGREED TO DO WOUND TREATMENT ON LEFT ELBOW AND R RIP STUMP, CHARGE NURSE AWARE
[2019-08-08] MEDS: diphenhydrAMINE HCL 50 MG/ML VIAL IV PRN (04:52)
[2019-08-08] MEDS: HYDROMORPHONE 1 MG/1 ML DISP.SYRIN IV PRN ×4 (04:53→22:49)
--- NOTE | 2019-08-08 05:00 | NUR ---
PROFESSOR OF NURSING NOTES PT REFUSED BLOOD DRAW TO MORNING LABS AND VANCO TROUGH INFORMED THE CHARGE NURSE, PHARMACY WAS INFORMED ALSO MS HIPOLITO FROM [facility] MADE AWARE ABOUT THE REFUSAL SHE SAID SHE WILL CHANGE THE TIME OF VANCOMYCIN TO BE GIVEN AND DO THE VANCO TROUGH AT 0800, NOTED AND MADE AN ORDER FOR NEW TIME OF VANCO TROUGH
[2019-08-08] MEDS: PIPERACILLIN /TAZOBACTAM 3.375 G in IV D5W 50 ML IV SCH (05:40)
[2019-08-08] MEDS ORDERED: VANCOMYCIN 1 GM in IV D5W 250ml IV SCH (06:00)
--- NOTE | 2019-08-08 06:54 | NUR ---
RN CLOSING NOTES PT SLEEPING IN BED NO ACUTE RESPIRATORY DISTRESS NOTED STILL ON LEVOPHED 0.04MCG/KG/MIN VIA FEMORAL TLC INFUSING WELL WITH LATEST BP 95/45 ON TELE MONITOR WITH READING SR 70'S-80'S ALL NEEDS ATTENDED SAFETY MEASURE MAINTAINED WILL ENDORSE TO AM SHIFT NURSE
--- NOTE | 2019-08-08 07:15 | NUR ---
received report from Chino RODRIGUEZ for DEB. pt resting quietly in ICU overflow bed 101 with bedside monitoring and tele, remains on levophed drip 0.04mcg/kg/min with systolic over 90 through femoral line. resp even unlabored on room air, tolerating well, does not need O2 at this time. dressing noted on left elbow intact, pt refuses wound assessment of sacrum. pt denies pain at this time. pt a/ox4 but very uncooperative. bed locked in lowest position, side rails up x2, HOB raised.
--- NOTE | 2019-08-08 07:45 | NUR ---
provided with breakfast tray
[2019-08-08] MEDS: PANTOPRAZOLE 40 MG TABLET.DR PO SCH (08:11)
[2019-08-08] MEDS: DAKINS QUARTER STRENGTH (0.125%) 480 ML BOTTLE TOP SCH (08:12)
[2019-08-08] MEDS: ASPIRIN 81 MG TAB.CHEW PO SCH (08:12)
[2019-08-08] MEDS: ATORVASTATIN 10 MG TABLET PO SCH (08:13)
--- NOTE | 2019-08-08 08:15 | NUR ---
Pt refuses blood draw including vanco trough despite thorough explanation of necessity of vanco trough, pt still refuses. states "i just woke up. i'm not ready. i'm not ready do to anything". Sha, pharmacist, instructed to give vanco 1g IV Q12H if pt refuses. Vanco will be administered per Sha
[2019-08-08] MEDS: MUPIROCIN OINT 2% 22 GM TUBE SCH ×2 (08:20→20:59)
[2019-08-08] MEDS: ENOXAPARIN SODIUM 40 MG/0.4 ML DISP.SYRIN SQ SCH (08:20)
[2019-08-08] MEDS: HYDROGEL DRESSING 90 GM TUBE TP SCH (08:22)
[2019-08-08] MEDS: VANCOMYCIN 1 GM in IV D5W 250ml IV SCH ×2 (08:22→21:00)
--- NOTE | 2019-08-08 08:25 | NUR ---
Dr Gardner at bedside
--- NOTE | 2019-08-08 09:19 | NUR ---
dr deras at bedside
--- NOTE | 2019-08-08 09:31 | NUR ---
pt refuses AM care, wound care, and repositioning this morning. educated on risks of not turning but pt refuses.
[2019-08-08] MEDS: Magnesium 1GM/D5W 100ML PREMIX 100 ML IV SCH ×2 (10:02→10:43)
--- NOTE | 2019-08-08 10:30 | NUR ---
pt consented to wound care at this time. wound care rendered.
--- NOTE | 2019-08-08 11:00 | NUR ---
levophed decreased to 0.03mcg/kg/min
--- NOTE | 2019-08-08 11:28 | NUR ---
pt medicated for abdominal pain at this time.
--- NOTE | 2019-08-08 11:30 | NUR ---
levophed decreased to 0.02mcg/kg/min
--- NOTE | 2019-08-08 12:45 | NUR ---
levophed increased to 0.04mcg/kg/min d/t hypotension
--- NOTE | 2019-08-08 13:30 | NUR ---
levophed increased to 0.04mcg/kg/min d/t hypotension Addendum: 08/08/19 at 1501 by JELANI WALL RN error, wrong time.
[2019-08-08] MEDS: SOD FERRIC GLUC 125 MG in IV NS 0.9% 100 ML IV SCH (14:35)
--- NOTE | 2019-08-08 16:37 | NUR ---
pt c/o upset stomach. contacted dr dawson, received verbal order for maalox 30ml q6h PRN. pt resting quietly, tolerating 0.04mcg/kg/min levophed. NAD noted.
[2019-08-08] MEDS ORDERED: MAG HYDROX/AL HYDROX/SIMETH 30 ML UDC PO PRN (17:00)
--- NOTE | 2019-08-08 18:00 | NUR ---
pt routinely refuses turning throughout today. pt states he wants to go to a [facility] when he is ready for discharge.
--- NOTE | 2019-08-08 19:10 | NUR ---
RN OPENING NOTES: Received pt awake in bed A&Ox4. On isolation for MRSA, Staph on wounds, ESBL of urine. On RA, O2 sat WNL. No SOB or respiratory distress noted. On tele monitor reading SR. Beck cath in place, draining urine via gravity. Colostomy intact. R femoral TLC in place, patent and flushing. Dressing c/d/i. Levophed running at 0.04mcg/kg/min. BP maintained WNL. Will titrate per protocol. Safety measures in place. Will continue to monitor.
--- NOTE | 2019-08-08 20:12 | NUR ---
RN NOTE: Spoke w/ pharmacy about 2100 dose of Vanco due to pt continuously refusing Vanco trough labs. Pharmacy stated ok to give 2100 dose and they will order another trough for tomorrow.
[2019-08-09] VITALS (91 sets, daily range): BP systolic 83–174; BP diastolic 30–89
--- NOTE | 2019-08-09 00:09 | NUR ---
RN NOTE: Pt continues to remove pulse ox. Stated he does not want it on. Explained risks and benefits of RN being unable to monitor pulse ox, stated he does not care. Pt also refused to allow POULTRY OFFAL WORKER and myself to check his temperature. Addendum: 08/09/19 at 0137 by GULSHAN YEAGER RN VAMSI Farah made aware.
--- NOTE | 2019-08-09 00:20 | NUR ---
RN NOTE: Offered pt bed bath, wound tx. Pt refused. Explained risks and benefits, continued to refuse.
--- NOTE | 2019-08-09 04:15 | NUR ---
RN NOTE: Offered to clean pt and perform wound tx and pt again refused. Explained risks and benefits, continued to refuse. Pt still refusing to have pulse ox checked.
[2019-08-09] MEDS ORDERED: NOREPINEPHRINE 8MG/250ML RTU 250 ML IV ONE (04:29)
[2019-08-09] MEDS: HYDROMORPHONE 1 MG/1 ML DISP.SYRIN IV PRN ×4 (04:49→22:27)
[2019-08-09] MEDS: NOREPINEPHRINE 8 MG in IV NS 0.9% 242 ML IV PRN (04:51)
[2019-08-09] MEDS: diphenhydrAMINE HCL 50 MG/ML VIAL IV PRN ×2 (05:43→14:19)
--- NOTE | 2019-08-09 06:48 | NUR ---
RN CLOSING NOTES: Pt resting in bed, A&Ox4, on isolation precations for MRSA of nares, ESBL of urine, staph of wounds. On RA tolerating well. No SOB or respiratory distress noted during shift. No acute changes noted during shift. SR on tele monitor. Right femoral TLC patent and flushed with Levo running at 0.05mcg/kg/min. Titrated per protocol. All medications administered as ordered. No complaints of pain at this time. Safety measures in place. Will endorse to AM nurse for DEB.
[2019-08-09 07:20] LABS: CALCIUM, SERUM 8.1 mg/dL (8.5-10.1); CREATININE 0.7 mg/dL (0.6-1.3); POTASSIUM 4.1 mmol/L (3.5-5.1)
[2019-08-09] MEDS: PANTOPRAZOLE 40 MG TABLET.DR PO SCH (08:56)
[2019-08-09] MEDS: ATORVASTATIN 10 MG TABLET PO SCH (08:56)
[2019-08-09] MEDS: ASPIRIN 81 MG TAB.CHEW PO SCH (08:56)
[2019-08-09] MEDS: VANCOMYCIN 1 GM in IV D5W 250ml IV SCH ×2 (08:57→21:28)
[2019-08-09] MEDS: DAKINS QUARTER STRENGTH (0.125%) 480 ML BOTTLE TOP SCH (08:57)
[2019-08-09] MEDS: MUPIROCIN OINT 2% 22 GM TUBE SCH ×2 (08:58→21:38)
[2019-08-09] MEDS: HYDROGEL DRESSING 90 GM TUBE TP SCH (08:58)
[2019-08-09] MEDS: ENOXAPARIN SODIUM 40 MG/0.4 ML DISP.SYRIN SQ SCH (09:01)
[2019-08-09] MEDS: HYDROCORTISONE SOD SUCCINATE 100 MG/2 ML VIAL IV SCH ×3 (11:15→18:38)
[2019-08-09] MEDS: HYDROCODONE/APAP 5/325MG 1 EACH TABLET PO PRN ×2 (12:52→20:05)
[2019-08-09] MEDS: SOD FERRIC GLUC 125 MG in IV NS 0.9% 100 ML IV SCH (14:11)
--- NOTE | 2019-08-09 19:31 | NUR ---
END OF SHIFT NOTE: PT ALERT OX3. MANIPULATIVE AT TIMES. PT REFUSED TO HAVE SACRAL DRESSING CHANGED TODAY. LEFT ELBOW AND RIGHT STUMP DRESSINGS CHANGED PER MD ORDERS. FULL BED BATH GIVEN TODAY AND OSTOMY CHANGED. TOTAL URINE OUTPUT WAS 3500ML. PT ATE 100% OF MEALS PLUS EXTRA FOOD. PT ONLY ALLOWED STAFF TO REPOSITION HIM A FEW TIMES DURING THE SHIFT. PT CHECKED ON HOURLY AND PRN BY NURSING STAFF.
[2019-08-10] VITALS (47 sets, daily range): BP systolic 77–134; BP diastolic 37–84
[2019-08-10] MEDS: ZOLPIDEM TARTRATE 5 MG TABLET PO PRN (00:05)
[2019-08-10] MEDS: diphenhydrAMINE HCL 50 MG/ML VIAL IV PRN ×3 (00:55→22:31)
[2019-08-10] MEDS: HYDROCORTISONE SOD SUCCINATE 100 MG/2 ML VIAL IV SCH ×4 (02:27→18:50)
--- NOTE | 2019-08-10 02:35 | NUR ---
RN NOTES PATIENT REFUSED SOLU-CORTEF DESPITE DISCUSSION OF RISKS AND BENEFITS. UNABLE TO RETURN MEDICATION DUE TO MEDICATION ALREADY DILUTED.
[2019-08-10] MEDS: HYDROCODONE/APAP 5/325MG 1 EACH TABLET PO PRN ×3 (04:28→19:34)
--- NOTE | 2019-08-10 04:30 | NUR ---
RN NOTES PATIENT REQUESTED FOR NORCO FOR KNEE PAIN 12/11, HOWEVER CHANGED MIND AND STATED "I WANT DILAUDID INSTEAD" UNABLE TO RETURN MEDICATION DUE TO MEDICATION WAS ALREADY OPENED.
[2019-08-10] MEDS: HYDROMORPHONE 1 MG/1 ML DISP.SYRIN IV PRN ×4 (04:36→22:56)
--- NOTE | 2019-08-10 07:20 | NUR ---
RN NOTES PATIENT SLEEPING IN BED, BUT EASY TO AROUSE, A/OX4, ABLE TO MAKE NEEDS KNOWN, PATIENT NEEDY. NO ACUTE CHANGES THROUGHOUT SHIFT. IV SITE RIGHT FEMORAL FLUSHING AND INTACT, SITE C/D/I, LEVO RUNNING AT 0.04MCG, TITRATED PER PROTOCOL. PATIENT REFUSED BED BATH AND WOUND TREATMENT DESPITE DISCUSSION OF RISKS AND BENEFITS. SAFETY MEASURES AND ISOLATION PRECAUTIONS MAINTAINED. ENDORSED TO AM RN FOR DEB.
--- NOTE | 2019-08-10 07:30 | NUR ---
RN NOTES PATEINT ASLEEP, EASILY AWAKEN BY VERBAL STIMULI, A/OX4, ABLE TO MAKE NEEDS KNOWN. ON ROOM AIR, BREATHING UNLABORED. SATING FINE. SINUS RHYTHM ON THE MONITOR WITH HR ON THE 80S. NO COMPLAINTS OF PAIN. WITH IVF AT TKO AND LEVOPHED AT 0.04MCG- WILL TITRATE ABLE, BOTH INFUSING WELL OVER THE R FEMORAL CATHETER. DRESSING ON THE L ARM AND R STUMP IN PLACE, DRY AND UNSOILED. SAFETY MEASURES IN PLACE. BED IN LOW AND LOCKED POSITIONED, SRX2 UP. CALL LIGHT WITHIN REACH. WILL CONTINUE TO MONITOR PATIENT ACCORDINGLY
--- NOTE | 2019-08-10 08:00 | NUR ---
RN NOTES PATIENT REFUSED TO BE TOUCH WHEN I ATTEMPTED TO FIX HIS LEADS NOT ALL VITAL SIGNS SHOWS ON THE MONITOR "JUST LET ME SLEEP MORE" WILL OFFER AGAIN IN A WHILE
[2019-08-10] MEDS: ATORVASTATIN 10 MG TABLET PO SCH (08:36)
[2019-08-10] MEDS: PANTOPRAZOLE 40 MG TABLET.DR PO SCH (08:36)
[2019-08-10] MEDS: ASPIRIN 81 MG TAB.CHEW PO SCH (08:36)
[2019-08-10] MEDS: VANCOMYCIN 1 GM in IV D5W 250ml IV SCH ×2 (08:36→21:02)
[2019-08-10] MEDS: MUPIROCIN OINT 2% 22 GM TUBE SCH ×2 (08:37→21:00)
[2019-08-10] MEDS: HYDROGEL DRESSING 90 GM TUBE TP SCH (08:37)
[2019-08-10] MEDS: DAKINS QUARTER STRENGTH (0.125%) 480 ML BOTTLE TOP SCH (08:37)
[2019-08-10] MEDS: ENOXAPARIN SODIUM 40 MG/0.4 ML DISP.SYRIN SQ SCH (08:38)
--- NOTE | 2019-08-10 10:00 | NUR ---
RN NOTES PATIENT WITH DESIRES TO BE TRANSFERRED TO THE WHEELCHAIR " SIT BY THE DOOR" EXPLAINED TO THE PATIENT THAT HE IS RECEIVING LEVOPHED AND THAT HE IS ON BEDSIDE MONITOR HIS BP IS BEING CHECKED ROUTINELY DUE TO HYPOTENSION AND IN ADDITION HE IS ON THE COVID UNIT FLOOR THAT IT IS NOT SAFE FOR HIM TO BE OUTSIDE THE ROOM OR TO ROAM AROUND THE UNIT AT THIS TIME
[2019-08-10] MEDS: SOD FERRIC GLUC 125 MG in IV NS 0.9% 100 ML IV SCH (14:27)
[2019-08-10] MEDS: PROSOURCE / PROSTAT (PYXIS) 30 ML UDC PO SCH ×2 (14:28→18:50)
--- NOTE | 2019-08-10 19:19 | NUR ---
RN NOTES ENDORSED PATIENT FOR CONTINUITY OF CARE. NOT ON ANY FORM OF DISTRESS. BREATHING UNLABORED. TOLERATING ROOM AIR. NO ACUTE CHANGES WITHIN THE SHIFT. ALL NURSING NEEDS ATTENDED AND MET. BLOOD PRESSURE WITHIN BORDERLINE. SAFETY MEASURES IN PLACE. CALL LIGHT WITHIN REACH.
--- NOTE | 2019-08-10 20:00 | NUR ---
RN NOTE LOGGING TRACTOR OPERATOR SWAMP FROM LAB AT BEDSIDE. RN UNABLE TO DRAW BLOOD FROM FEMORAL CATHETER. LOGGING TRACTOR OPERATOR SWAMP ATTEMPTED TO DRAW BLOOD FROM PT BUT PT STRONGLY REFUSED. EXPLAINED RISKS AND ADVANTAGES BUT PT CONTINUES TO REFUSE. CHARGE NURSE GRADY MADE AWARE.
--- NOTE | 2019-08-10 20:00 | NUR ---
RN NOTE PT REFUSING PM CARE AT THIS TIME. EXPLAINED THE NEED TO LOOK AT WOUND DRESSINGS BUT PT BECAME VERBALLY ABUSIVE AND YELLED "NO! DO IT LATER. LET ME SLEEP."
[2019-08-11] VITALS (11 sets, daily range): BP systolic 90–137; BP diastolic 42–81
--- NOTE | 2019-08-11 | NUR ---
RN NOTE DURING 0000 VITAL SIGNS, PT REFUSED TO HAVE TEMPERATURE CHECKED DESPITE EDUCATION. SKIN WARM TO TOUCH. NO SIGNS OF UNSTABLE TEMPERATURE AT THIS TIME, WILL MONITOR.
[2019-08-11] MEDS: HYDROCORTISONE SOD SUCCINATE 100 MG/2 ML VIAL IV SCH ×3 (02:13→17:19)
[2019-08-11] MEDS: HYDROMORPHONE 1 MG/1 ML DISP.SYRIN IV PRN ×5 (03:01→23:11)
--- NOTE | 2019-08-11 04:00 | NUR ---
RN NOTE DEPUTY CHIEF EXECUTIVE AT BEDSIDE FOR ASSISTANCE. PT REFUSED TO HAVE TEMPERATURE TAKEN AGAIN DESPITE EXPLANATION OF RISKS AND BENEFITS. PT WITHOUT SIGNS OR SYMPTOMS OF UNSTABLE TEMPERATURE AT THIS TIME. PT IS ALSO REFUSING AM CARE INCLUDING BED BATH, LINEN CHANGE, GOWN CHANGE AND WOUND CARE. OFFERED TO CHANGE COLOSTOMY BAG BUT PT HELD OUT HIS HAND AND STATED "MY COLOSTOMY IS FINE." ALSO OFFERED TO EMPTY COLOSTOMY BAG BUT PT REFUSED AND WILL NOT LET ME OR DEPUTY CHIEF EXECUTIVE ANDREY TO TOUCH HIM. UNABLE TO OBTAIN MEASUREMENT FOR STOOL OUTPUT. PT IS ALSO REFUSING TO BE TURNED AND REPOSITIONED. PROVIDED PT EDUCATION AND OFFERED X 3 BUT PT CONTINUES TO REFUSE. WILL MONITOR AND OFFER AGAIN. Addendum: 08/11/19 at 0426 by NILESH WALLS RN PT ALLOWED DEPUTY CHIEF EXECUTIVERylan BALDERAS TO EMPTY ALAMO CATHETER BAG.
--- NOTE | 2019-08-11 05:24 | NUR ---
RN NOTE PT REMOVED O2 SATURATION SENSOR PROBE AND IS REFUSING CONTINUOS O2 SAT MONITORING DESPITE PT EDUCATION. PT IS CURRENTLY ON ROOM AIR. RESPIRATIONS UNLABORED. WILL CONTINUE TO MONITOR.
--- NOTE | 2019-08-11 05:59 | NUR ---
RN NOTE ESTEPHANIA FROM THE LAB AT BEDSIDE OFFERING TO DRAW AM LABS. PT REFUSED AND REQUESTED FOR HIDE SPREADER TO "COME BACK AFTER BREAKFAST."
[2019-08-11] MEDS: HYDROCODONE/APAP 5/325MG 1 EACH TABLET PO PRN ×2 (06:08→12:37)
--- NOTE | 2019-08-11 06:49 | NUR ---
RN NOTE NO ACUTE CHANGES OBSERVED OVERNIGHT. PT SLEEPING IN BED IN SITTING POSITION BUT EASILY AROUSABLE. WITH BEDSIDE MONITOR. BLOOD PRESSURE WNL. NO INDICATIONS OF PAIN OR DISCOMFORT. PT CURRENTLY ON ROOM AIR. RESPIRATIONS EVEN AND UNLABORED. WITH PATENT SUPRAPUBIC CATHETER DRAINING CLEAR YELLOW URINE. PT WITH OSTOMY BUT PT REFUSED TO HAVE BAG CHANGED OR EMPTIED. UNABLE TO RENDER WOUND CARE DUE TO PATIENT REFUSAL. CALL LIGHT WITHIN REACH, SAFETY MEASURES IN PLACE, WILL ENDORSE TO MORNING RN FOR CONTINUATION OF CARE.
--- NOTE | 2019-08-11 07:30 | NUR ---
rn notes patient awake, with complaints of pain 10/10. requesting for pain medication. per report patient just got PRN norco PO. will check if there is anything that can be given at this time. patient not on any cardio respiratory distress. breathing fine on room air. current blood pressure appears to be within normal ranges on the monitor. falcon catheter in place. call light within reach. safety measures in place. will continue to monitor patient accordingly
[2019-08-11] MEDS: PANTOPRAZOLE 40 MG TABLET.DR PO SCH (08:05)
[2019-08-11] MEDS: ASPIRIN 81 MG TAB.CHEW PO SCH (08:07)
[2019-08-11] MEDS: ATORVASTATIN 10 MG TABLET PO SCH (08:07)
[2019-08-11] MEDS: HYDROGEL DRESSING 90 GM TUBE TP SCH (08:25)
[2019-08-11] MEDS: ENOXAPARIN SODIUM 40 MG/0.4 ML DISP.SYRIN SQ SCH (08:25)
[2019-08-11] MEDS: DAKINS QUARTER STRENGTH (0.125%) 480 ML BOTTLE TOP SCH (08:26)
[2019-08-11] MEDS: MUPIROCIN OINT 2% 22 GM TUBE SCH ×2 (08:26→21:53)
[2019-08-11] MEDS: PROSOURCE / PROSTAT (PYXIS) 30 ML UDC PO SCH ×3 (08:26→17:19)
--- NOTE | 2019-08-11 10:00 | NUR ---
rn notes patient looking for cellphone and scrap charger that was with him during admission. check belonging bags at bedside but unfortunately it was not found. confirmed claims with belonging list onn admission but list does not include items being claimed. Informed charge nurse, per the charge nurse (Soon) she will talk to the patient herself
[2019-08-11] MEDS: VANCOMYCIN 1 GM in IV D5W 250ml IV SCH ×2 (10:15→21:53)
[2019-08-11] MEDS: diphenhydrAMINE HCL 50 MG/ML VIAL IV PRN (17:21)
--- NOTE | 2019-08-11 17:50 | NUR ---
JENNIFER NOTE TRANSFERRED PATIENT TO ROOM 317 UNDER ACLS PROTOCOL. ENDORSED TO JENNIFER SOLOMON FOR CONTINUATION OF CARE. Addendum: 08/11/19 at 2048 by NILESH WALLS RN ERROR. TIME CORRECTED TO 1949.
--- NOTE | 2019-08-11 18:50 | NUR ---
rn notes patient stable condition. not on any form of distress. patient with contiguous complain of pain despite routine pain medication administration. no acute changes within the shift. all nursing needs attended as much as i am able. safety bed inn low and locked position. safety measures in place.call light within reach
[2019-08-11] MEDS: ZOLPIDEM TARTRATE 5 MG TABLET PO PRN (19:35)
--- NOTE | 2019-08-11 19:50 | NUR ---
PLANNER NOTE PATIENT TRANSFERRED FROM [facility] TO ROOM 317. REPORT RECIEVED EARLIER FROM LORRIE ULLOA RN. PATIENT TRANSFERRED WITH NILESH RODRIGUEZ. PER NILESH HE JUST MEDICATED WITH DILAUDID 2 MG IVP AND GAVE PATIENT AMBIEN PER HIS REQUEST JUST PRIOR TO TRANSFER. PATIENT IS ALERT / ORIENTED X4 PT NOT DROWSY. RESPIRATIONS ARE EVEN AND UNLABORED ON RA, NOT IN ANY ACUTE DISTRESS. PT TOLERATING PO INTAKE, SUPRAPUBIC CATHETER IN PLACE DRAINING CLEAR/YELLOW URINE. PATIENT ABLE TO TURN SIDE TO SIDE USING SIDE RAILS INDEPENDENTLY. COLOSTOMY DRAINING SOFT BROWN STOOL. PATIENT ORIENTED TO NEW ROOM. CALL LIGHT WITHIN REACH. VERBALIZED UNDERSTANDING TO CALL FOR ASSISTANCE NEEDED. WILL CONT TO MONITOR. CONTACT PRECAUTIONS IN PLACE FOR POSTIVE MRSA IN WOUNDS AND ESBL IN URINE.
[2019-08-11 21:05] LABS: BASOPHILS % (AUTO) 0.1 % (0.0-2.0); EOSINOPHILS % (AUTO) 0.1 % (0.0-6.0); HEMATOCRIT 33 % (39-51); HEMOGLOBIN 9.8 g/dL (13.5-17.5); LYMPHOCYTES # (AUTO) 0.9 /CMM (0.8-4.8); LYMPHOCYTES % (AUTO) 5.9 % (20.0-44.0); MEAN CORPUSCULAR HGB CONC 30 g/dl (31.0-36.0); MEAN CORPUSCULAR VOLUME 79 fL (80-96); MONOCYTES # (AUTO) 0.5 /CMM (0.1-1.30); MONOCYTES % (AUTO) 3.4 % (2.0-12.0); NEUTROPHILS # (AUTO) 13.6 /CMM (1.8-8.9); NEUTROPHILS % (AUTO) 90.5 % (43.0-81.0); PLATELET COUNT (AUTO) 291 /CMM (150-450); RED BLOOD CELL COUNT(AUTO) 4.15 MIL/uL (4.5-6.0)
[2019-08-11 21:16] LABS: CALCIUM, SERUM 8.2 mg/dL (8.5-10.1); POTASSIUM 4.1 mmol/L (3.5-5.1)
[2019-08-11 21:46] LABS: LYMPHOCYTES % (MANUAL) 10 % (16-48); MONOCYTES % (MANUAL) 2 % (0-11.0); NEUTROPHILS % (MANUAL) 88 (42-76)
--- NOTE | 2019-08-11 23:57 | NUR ---
REFUSED NEW WOUND PICTURES TO BE TAKEN AT THIS TIME. RENDERING WOUND CARE TO PATIENT. CAMERA UNAVAILABLE ASKED IF I COULD COME BACK LATER TO TAKE PICTURS OF WOUNDS PT STATES, "NO, IM GONNA BE SLEEPING IF YOU CANT TAKE THEM NOW THEN FORGET IT."
[2019-08-12] MEDS: diphenhydrAMINE HCL 50 MG/ML VIAL IV PRN ×3 (00:04→22:35)
[2019-08-12] MEDS: HYDROMORPHONE 1 MG/1 ML DISP.SYRIN IV PRN ×5 (04:17→20:19)
--- NOTE | 2019-08-12 04:20 | NUR ---
MS RN NOTES PATIENT COMPLAINING OF PAIN 10/10. GIVEN PRN DILAUDID AT 0420. RN WAS NOT AVAILABLE AT THE TIME. VITALS WERE 121/70, PULSE 68, 18RR, 96% ON ROOM AIR. WILL CONTINUE TO MONITOR.
[2019-08-12] MEDS: HYDROCORTISONE SOD SUCCINATE 100 MG/2 ML VIAL IV SCH ×3 (04:33→18:08)
[2019-08-12] MEDS: HYDROCODONE/APAP 5/325MG 1 EACH TABLET PO PRN ×2 (06:59→17:07)
[2019-08-12] MEDS: PANTOPRAZOLE 40 MG TABLET.DR PO SCH (06:59)
--- NOTE | 2019-08-12 07:35 | NUR ---
m/s sylvain: notes pt c/o 01/10 tejal leg pain, informed pt that his pain is now due yet, pt keeps insisting it was given to him at 0330. informed him it was given to him at around 4am. pt still pain seeker and manipulative. will continue to monitor. Addendum: 08/12/19 at 1247 by VITA BURDICK LVN easily irritated and needy.
[2019-08-12 08:00] VITALS: BP 114/62
[2019-08-12] MEDS: VANCOMYCIN 1 GM in IV D5W 250ml IV SCH ×2 (08:15→20:18)
--- NOTE | 2019-08-12 08:17 | NUR ---
m/s scientific associate: notes c/o 10/ tejal leg pain. medicated with dilaudid 2mg ivp by rn. instructed to call for assistance. pt remains easily irritated.
[2019-08-12] MEDS: ATORVASTATIN 10 MG TABLET PO SCH (08:37)
[2019-08-12] MEDS: ASPIRIN 81 MG TAB.CHEW PO SCH (08:37)
[2019-08-12] MEDS: PROSOURCE / PROSTAT (PYXIS) 30 ML UDC PO SCH ×3 (08:45→16:29)
[2019-08-12] MEDS: ENOXAPARIN SODIUM 40 MG/0.4 ML DISP.SYRIN SQ SCH (08:46)
[2019-08-12] MEDS: MUPIROCIN OINT 2% 22 GM TUBE SCH ×2 (08:47→20:26)
[2019-08-12 09:11] LABS: BASOPHILS % (AUTO) 0.4 % (0.0-2.0); EOSINOPHILS % (AUTO) 0.3 % (0.0-6.0); HEMATOCRIT 31 % (39-51); HEMOGLOBIN 9.4 g/dL (13.5-17.5); LYMPHOCYTES # (AUTO) 0.8 /CMM (0.8-4.8); LYMPHOCYTES % (AUTO) 7.9 % (20.0-44.0); MEAN CORPUSCULAR HGB CONC 30 g/dl (31.0-36.0); MEAN CORPUSCULAR VOLUME 80 fL (80-96); MONOCYTES # (AUTO) 0.6 /CMM (0.1-1.30); MONOCYTES % (AUTO) 5.6 % (2.0-12.0); NEUTROPHILS # (AUTO) 8.6 /CMM (1.8-8.9); NEUTROPHILS % (AUTO) 85.8 % (43.0-81.0); PLATELET COUNT (AUTO) 273 /CMM (150-450)
[2019-08-12 09:54] LABS: ALBUMIN 2.2 g/dL (3.4-5.0); BILIRUBIN,TOTAL 0.1 mg/dL (0.2-1.0); CALCIUM, SERUM 8.2 mg/dL (8.5-10.1); CREATININE 0.8 mg/dL (0.6-1.3); PHOSPHORUS 2.9 mg/dL (2.5-4.9); POTASSIUM 4.2 mmol/L (3.5-5.1); TOTAL PROTEIN, SERUM 6.6 g/dL (6.4-8.2)
--- NOTE | 2019-08-12 10:00 | NUR ---
m/s assembly machine tender: notes pt in a sitting position, doesn't like to be turned from side to side.
--- NOTE | 2019-08-12 11:18 | NUR ---
SHAHIDA NOTE: SW attempted to speak with pt over the phone due to SW being unable to meet with pt at bedside due to him being in isolation precaution for wound MRSA and ESBL urine. SW called pts room three times and pt did not answer. SHAHIDA consulted with Alan RODRIGUEZ, who states pt is uncooperative, med seeking, and manipulating staff and states pt is constantly on the phone. Pt is homeless and has history for illicit drug use, paraplegia, status post colectomy with colostomy bag and bilateral [id number] amputations. He also has a noted acute left elbow open wound. SHAHIDA has placed homeless resources in pts chart and will follow up at a later time.
[2019-08-12] MEDS: DAKINS QUARTER STRENGTH (0.125%) 480 ML BOTTLE TOP SCH (12:00)
[2019-08-12] MEDS: HYDROGEL DRESSING 90 GM TUBE TP SCH (12:00)
--- NOTE | 2019-08-12 12:00 | NUR ---
m/s sylvain: notes all tx done to wounds, pt rushing the nurse to do his wound care, unable to take good photos on sacral/buttocks wounds. colostomy care rendered. will continue to monitor. Addendum: 08/12/19 at 1300 by VITA BURDICK LVN pt still likes lie supine. refusing to be turned on the side.
--- NOTE | 2019-08-12 12:20 | NUR ---
m/s riprap placer: notes c/o 10/ tejal leg pain. medicated with dilaudid 2mg ivp by rn. instructed to call for assistance. pt remains easily irritated.
--- NOTE | 2019-08-12 12:50 | NUR ---
m/s structural shop helper: notes in his room awake, watching tv. voiced no discomfort.
--- NOTE | 2019-08-12 14:00 | NUR ---
m/s general clerk: notes per zoning administrator, pt dictating what things must be done in his room, spent there for 30 minutes. needs attended by staff. will continue to monitor.
--- NOTE | 2019-08-12 15:30 | NUR ---
SHAHIDA NOTE: SW attempted to call pt, this is the 4th attempt. 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 SW will try again at a later time.
--- NOTE | 2019-08-12 15:45 | NUR ---
m/s wet room worker: notes pt request for pain med, but not due yet and aware. pt wants pain on the dot.
[2019-08-12 16:00] VITALS: BP 115/64
--- NOTE | 2019-08-12 16:19 | NUR ---
RN NOTES ADMINISTERED DILAUDID 2 MG/ML IV PUSH FOR GENERALIZED PAIN 11/10 PER PATIENT REQUEST, V/S TAKEN BP-131/72, P-98, R-20. CONTINUED MONITORING.
--- NOTE | 2019-08-12 17:00 | NUR ---
arnold/patience narayan: notes colostomy care rendered. Addendum: 08/12/19 at 1816 by VITA BURDICK LVN pt had 2 form brown stool inside the colostomy bag.
--- NOTE | 2019-08-12 17:07 | NUR ---
m/s disability advocate: notes pt request for a pain pill, stated, "my leg still hurts." pt has tejal aka. dressing to right stump remains in place. pt change his mind, doesn't want the benadryl now.
--- NOTE | 2019-08-12 18:07 | NUR ---
m/s sap basis consultant: notes having dinner at this time. needs attended. appears comfortable. no apparent distress noted. will continue to monitor.
--- NOTE | 2019-08-12 19:00 | NUR ---
m/s health and safety coordinator: notes report given to jesse (rn) for continuity of care.
--- NOTE | 2019-08-12 19:50 | NUR ---
MS RN OPENING NOTES RECEIVED PATIENT IN BED ALERT AND ORIENTED X 3. VERBALLY RESPONSIVE AND ABLE TO FOLLOW DIRECTIONS. BREATHING REGULAR AND UNLABORED ON ROOM AIR. RIGHT FEMORAL PICC LINE INTACT AND PATENT, FLUSHING WELL WITH NO BLEEDING OR S/S OF INFILTRATION NOTED. COLOSTOMY BAG INTACT CLEAN WITH NO LEAK. SUPRAPUBIC CATH PATENT DRAINING WELL WITH CLEAR YELLOW URINE. COMPLAINED OF 9/10 STUMP PAIN, NON-PHARMACOLOGICAL INTERVENTIONS PROVIDED. BED LOW AND LOCKED ON SEMI FOWLERS POSITION. CALL LIGHT IN REACH. WILL CONTINUE TO MONITOR.
[2019-08-12 20:00] VITALS: BP 100/66
--- NOTE | 2019-08-12 20:30 | NUR ---
MS RN NOTES COMPLAINED OF 9/10 STUMP PAIN, DILAUDID 2MG GIVEN VIA IV PUSH. NON-PHARMACOLOGICAL INTERVENTIONS PROVIDED. VITAL SIGNS WNL. WILL CONTINUE TO MONITOR.
[2019-08-13] MEDS: HYDROMORPHONE 1 MG/1 ML DISP.SYRIN IV PRN ×6 (00:20→20:37)
[2019-08-13] MEDS: HYDROCORTISONE SOD SUCCINATE 100 MG/2 ML VIAL IV SCH ×3 (02:48→19:00)
--- NOTE | 2019-08-13 06:00 | NUR ---
MS RN NOTES REFUSED WOUND TREATMENTS, COLOSTOMY BAG CHANGE AND REPOSITIONING. RISK AND BENEFITS EXPLAINED. WILL CONTINUE TO MONITOR.
--- NOTE | 2019-08-13 06:35 | NUR ---
MS RN CLOSING NOTES PATIENT IN BED ALERT AND ORIENTED X 3, PAIN SEEKER, MANIPULATIVE AND UNCOOPERATIVE. AFEBRILE WITH NO S/S OF DISTRESS OBSERVED. RIGHT FEMORAL PICC LINE PATENT AND FLUSHING WELL. REFUSED COLOSTOMY BAG CHANGE. SUPRAPUBIC CATH PATENT DRAINING WELL WITH CLEAR YELLOW URINE 2000cc OUTPUT. NO COMPLAINTS OF PAIN/DISCOMFORT REPORTED AT THIS TIME. BED LOW AND LOCKED ON SEMI FOWLERS POSITION. CALL LIGHT IN REACH. WILL ENDORSE TO MORNING SHIFT FOR DEB.
--- NOTE | 2019-08-13 07:35 | NUR ---
MS/RN NOTE THE PATIENT IS RECEIVED IN BED/ A/O X4. DENIES PAIN. DENIES SOB. RESPIRATION REGULAR AND UNLABORED. RIGHT FEMORAL PICC LINE PATENT AND SALINE LOCKED. COLOSTOMY BAG IN PLACE. SUPRAPUBIC F/C IN PLACE. BED LOW AND LOCKED. SIDE RAILS UP X3. CALL LIGHT WITHIN REACH. WILL CONTINUE TO MONITOR.
[2019-08-13 08:00] VITALS: BP 136/94
[2019-08-13] MEDS: DAKINS QUARTER STRENGTH (0.125%) 480 ML BOTTLE TOP SCH (09:00)
[2019-08-13] MEDS: HYDROGEL DRESSING 90 GM TUBE TP SCH (09:00)
[2019-08-13] MEDS: PROSOURCE / PROSTAT (PYXIS) 30 ML UDC PO SCH ×3 (09:00→17:00)
[2019-08-13] MEDS: MUPIROCIN OINT 2% 22 GM TUBE SCH ×2 (09:00→20:51)
[2019-08-13] MEDS: HYDROCODONE/APAP 5/325MG 1 EACH TABLET PO PRN ×2 (09:13→15:17)
--- NOTE | 2019-08-13 09:13 | NUR ---
MS/RN NOTE PATIENT STILL COMPLAINS OF BACK PAIN 12/11
[2019-08-13] MEDS: VANCOMYCIN 1 GM in IV D5W 250ml IV SCH ×2 (09:17→20:48)
[2019-08-13] MEDS: ASPIRIN 81 MG TAB.CHEW PO SCH (09:26)
[2019-08-13] MEDS: ATORVASTATIN 10 MG TABLET PO SCH (09:26)
[2019-08-13] MEDS: PANTOPRAZOLE 40 MG TABLET.DR PO SCH (09:26)
[2019-08-13] MEDS: ENOXAPARIN SODIUM 40 MG/0.4 ML DISP.SYRIN SQ SCH (09:30)
--- NOTE | 2019-08-13 09:33 | NUR ---
MS/RN NOTE THE PATIENT REFUSED BACTROBAN, PROSTAT DESPITE EXPLAINING RISKS AND BENEFITS MULTIPLE TIMES. ALSO, THE PATIENT REFUSED WOUND TREATMENT (INCLUDING DAKIN`S SOLN, CURASOL GEL) DESPITE EXPLAINING RISKS AND BENEFITS.
--- NOTE | 2019-08-13 09:46 | NUR ---
/JENNIFER NOTE PATIENT COMPLAINS BACK PAIN 12/11. DILAUDID 2 MG GIVEN. WILL CONTINUE TO MONITOR. Addendum: 08/13/19 at 0950 by RUSS PALOMINO RN /JENNIFER NOTE ABOVE NOTE IS FOR 821.
--- NOTE | 2019-08-13 10:13 | NUR ---
MS/RN NOTE PSTIENT VERBALIZED NORCO BEING EFFECTIVE AND RATED BACK PAIN 5/10. THE PATIENT DOES NOT WANT ANY PAIN MEDICATION AT THIS TIME. WILL CONTINUE TO MONITOR.
--- NOTE | 2019-08-13 14:10 | NUR ---
SHAHIDA NOTE: SW received a call from pt stating that he does not believe that he no longer has hospital and SNF days. Pt states that he will not go anywhere else and that he will not pay for placement. Pt states that everyone in the hospital is rude and that no one is willing to help him. SW attempted to explain why his days have been exhausted and pt became agitated and began yelling stating that what SW was saying was not true. [facility] [employer] phone number and when SW attempted to provide pt with the phone number pt began yelling for his nurse and hung up the phone. SW attempted to call back and pt did not answer. SHAHIDA called community center director and provided her with the [facility] member [employer] phone number so she can hand it to pt. SHAHIDA informed social work case manager Melissa of phone call.
[2019-08-13] MEDS: diphenhydrAMINE HCL 50 MG/ML VIAL IV PRN (17:55)
--- NOTE | 2019-08-13 19:00 | NUR ---
RN nabilarhuber opening notes Received Pt from morning nurse. Pt is sitting in bed comfortably eating dinner. Pt is alert and orientedX3. Respiration is normal in room air. No SOB. No S/S of distress noted. R femoral PICC line is clean, intact and patent. Suprapubic cath is intact, patent and draining clear yellow urine. Safety precautions is maintained. Bed at low position, brakes locked, Side arils upX2 and call light is within reach. Will continue to monitor.
--- NOTE | 2019-08-13 19:04 | NUR ---
MS/RN NOTE THE PATIENT A/O X4. IN ROOM AIR AND SATURATION IS AT 98%. DENIES SOB. RESPIRATION REGULAR AND UNLABORED. COMPLAINS OF BACK PAIN / AT THIS TIME BUT THE PATIENT VERBALIZED THAT HE WILL WAIT FOR HIS MEDICATION DUE TIME. RIGHT FEMORAL PICC LINE PATENT AND SALINE LOCKED. COLOSTOMY BAG CHANGED. STOMA PINK AND MOST. WOUND DRESSING CHANGES DONE PER ORDER PER ORDER AND THE PATIENT TOLERATED IT WELL. BED LOW AND LOCKED. SIDE RAILS UP X3. CALL LIGHT WITHIN REACH. WILL ENDORSE TO THEATRE DIRECTOR. Addendum: 08/13/19 at 1908 by RUSS PALOMINO RN MS/RN NOTE THE PATIENT ALAMO CATH BAG NOTED TO HAVE 1700 ML CLEAR, YELLOW URINE HOWEVER, THE PATIENT REFUSED THE BAG TO BE EMPTIED. REQUESTED IT TO BE DOME LATER AFTER 7 PM. WILL ENDORSE TO NIGHTS SHIFT.
--- NOTE | 2019-08-13 19:57 | NUR ---
RN medsurg notes Pt refused solucortef 50 mg/1 ml. Offered multiple times. Pt keep refusing. Pt stated " I don't need it. I only need pain meds dilaudid." Made aware risks and benefits and informed dilaudid is not due yet Q 4 hr. Pt keep saying " Just give me dilaudid men!!" Will continue to monitor.
[2019-08-13 20:00] VITALS: BP 117/68
--- NOTE | 2019-08-13 20:37 | NUR ---
RN medsurhuber notes Pt is complaining of pain on his back and requesting dilaudid. Administered dilaudid 2 mg as ordered for pain. VS is stable. Safety precautions is maintained. Will continue to monitor.
--- NOTE | 2019-08-13 20:52 | NUR ---
RN medsur notes Pt refused bactroban. Made aware risks and benefits. Pt keep refusing. Pt stated "i just want to sleep!" Will continue to monitor.
[2019-08-13] MEDS: ZOLPIDEM TARTRATE 5 MG TABLET PO PRN (21:15)
[2019-08-14] MEDS: HYDROMORPHONE 1 MG/1 ML DISP.SYRIN IV PRN ×6 (00:39→21:12)
[2019-08-14] MEDS: HYDROCORTISONE SOD SUCCINATE 100 MG/2 ML VIAL IV SCH ×3 (03:00→18:14)
--- NOTE | 2019-08-14 04:49 | NUR ---
ADONIS blum notes Pt refused wound care, refused staff to empty colostomy bag, refused to empty falcon cath. Made aware risk and benefits. Attempted multiple times. Pt keep refusing and easily agitated. Pt stated "Just leave it!" Pt also stated " My colostomy bag is still emptied!" with a loud voice. Pt refused staff to check colostomy bag. Charge nurse is aware and informed.
--- NOTE | 2019-08-14 05:44 | NUR ---
RN miley notes Pt refused to have blood drawn by laboratory apparatus glass grinder. Made aware risks and benefits. Staff Offered multiple times. Pt keep refusing. Pt stated "I don't need it!" with a loud voice. Will continue to monitor.
--- NOTE | 2019-08-14 06:42 | NUR ---
RN merlesurhuber closing notes Pt is resting in bed comfortably. Pt is alert and orientedX3, uncooperative, agitated easily, pain seeker and manipulative. Respiration is normal in room air. No SOB. No S/S of distress noted. VS is stable. Afebrile. R femoral PICC line is clean, intact and patent. Suprapubic cath is intact, patent and draining clear yellow urine. Pt refused to have colostomy bag changed, refused to have staffs empty suprapubic cath and Refused wound care. Made aware risks and benefits. Pt keep refusing. Safety precautions is maintained. Bed at low position, brakes locked, Side rails upX2 and call light is within reach. Will endorse to morning nurse for DEB.
--- NOTE | 2019-08-14 07:32 | NUR ---
MS RN OPENING NOTE RECEIVED PATIENT IN BED SLEEPING COMFORTABLY. PATIENT IN NO ACUTE DISTRESS. NO SOB NOTED. PATIENT BREATHING IS EVEN AND UNLABORED. PATIENT SAFETY PRECAUTIONS IN PLACE. SUPRAPUBIC CATH PATENT AND DRAINING CLEAR YELLOW URINE. PATIENT BED ALARM IS ON. PATIENT BED IS LOCKED AND IN LOWEST POSITION. CALL LIGHT WITHIN REACH. WILL CONTINUE TO MONITOR.
[2019-08-14 08:00] VITALS: BP 127/76
[2019-08-14] MEDS: PANTOPRAZOLE 40 MG TABLET.DR PO SCH (08:47)
[2019-08-14] MEDS: ATORVASTATIN 10 MG TABLET PO SCH (08:48)
[2019-08-14] MEDS: ASPIRIN 81 MG TAB.CHEW PO SCH (08:48)
[2019-08-14] MEDS: HYDROGEL DRESSING 90 GM TUBE TP SCH (08:50)
[2019-08-14] MEDS: PROSOURCE / PROSTAT (PYXIS) 30 ML UDC PO SCH ×3 (08:50→16:18)
[2019-08-14] MEDS: DAKINS QUARTER STRENGTH (0.125%) 480 ML BOTTLE TOP SCH (08:50)
[2019-08-14] MEDS: MUPIROCIN OINT 2% 22 GM TUBE SCH (08:50)
[2019-08-14] MEDS: ENOXAPARIN SODIUM 40 MG/0.4 ML DISP.SYRIN SQ SCH (08:55)
--- NOTE | 2019-08-14 08:58 | NUR ---
MS RN NOTE PATIENT REFUSED 0900 LOVENOX, PROSTAT, BACTROBAN, DAKIN SOLUTION, AND HYDROGEL. PATIENT IS REFUSING WOUND CARE. PATIENT YELLS " I DONT WANT THAT RIGHT NOW, I WANT TO SLEEP AND GET MY DILAUDID". Addendum: 08/14/19 at 0900 by CESAR WARREN RN MS RN NOTE PATIENT REFUSED 0900 LOVENOX, PROSTAT, BACTROBAN, DAKIN SOLUTION, AND HYDROGEL. PATIENT IS REFUSING WOUND CARE. EDUCATED RISKS VS BENEFITS. PATIENT YELLS " I DONT WANT THAT RIGHT NOW, I WANT TO SLEEP AND GET MY DILAUDID".
[2019-08-14] MEDS: VANCOMYCIN 1 GM in IV D5W 250ml IV SCH ×2 (09:02→20:41)
--- NOTE | 2019-08-14 09:08 | NUR ---
MS RN NOTE PATIENT IS REFUSING AM LABS INCLUDING VANCO TROUGH. SPOKE WITH AIDAN FROM PHARMACY. PER AIDAN GIVE VANCOMYCIN 0900 DOSE SCHEDULED WITHOUT TROUGH AT THIS TIME.
[2019-08-14] MEDS: diphenhydrAMINE HCL 50 MG/ML VIAL IV PRN ×2 (11:46→18:12)
--- NOTE | 2019-08-14 11:47 | NUR ---
MS RN NOTE PATIENT REFUSING SOLU-CORTEF 1100 DOSE. EDUCATED RISKS VS BENEFITS. PATIENT CONTINUED TO REFUSE. PATIENT REQUESTING DIPHENHYDRAMINE PRN FOR ITCHING OF LEGS. DIPHENHYDRAMINE PRN GIVEN.
--- NOTE | 2019-08-14 12:11 | NUR ---
MS RN NOTE PATIENT REFUSING PROSTAT 1300 DOSE. PATIENT STILL REFUSING WOUND CARE. EDUCATED RISKS VS BENEFITS. PATIENT CONTINUES TO REFUSE.
[2019-08-14 16:00] VITALS: BP 139/86
--- NOTE | 2019-08-14 16:19 | NUR ---
MS RN NOTE PATIENT REFUSING PROSTAT 1700 DOSE, PATIENT AWARE OF RISKS VS BENEFITS.
--- NOTE | 2019-08-14 18:25 | NUR ---
MS RN NOTE PATIENT REFUSING SOLU-CORTEF 1900 DOSE. EDUCATED RISKS VS BENEFITS. PATIENT CONTINUED TO REFUSE.
[2019-08-14] MEDS: HYDROCODONE/APAP 5/325MG 1 EACH TABLET PO PRN (18:53)
--- NOTE | 2019-08-14 19:14 | NUR ---
MS RN NOTES PATIENT IN BED, AWAKE, ALERT AND ORIENTED X 4. BREATHING EVEN AND UNLABORED ON ROOM AIR. SHOWS NO SIGNS OF ACUTE RESPIRATORY DISTRESS. NO ACUTE PAIN. IV ON R FEMORAL PICC LINE CLEAN DRY AND INTACT. SHOWS NO SIGNS OF INFILTRATION, NO REDNESS. SUPRAPUBIC CATH CLEAN DRY AND INTACT. FLOW CLEAR YELLOW URINE. SAFETY PRECAUTIONS IN PLACE. BED IN LOWEST POSITION, LOCKED, AND CALL LIGHT KEPT WITHIN REACH. WILL CONTINUE TO MONITOR.
--- NOTE | 2019-08-14 19:25 | NUR ---
MS RN CLOSING NOTE PATIENT IN BED SLEEPING COMFORTABLY. PATIENT IN NO ACUTE DISTRESS. NO SOB NOTED. PATIENT BREATHING IS EVEN AND UNLABORED. PATIENT SAFETY PRECAUTIONS IN PLACE. SUPRAPUBIC CATH PATENT AND DRAINING CLEAR YELLOW URINE. PATIENT KEPT CLEAN AND DRY BUT PATIENT CONTINUOUSLY REFUSED TO HAVE WOUND CARE PROVIDED AND OSTOMY BAG CHANGED. PATIENT STATED " LEAVE ME ALONE, IM TRYING TO REST ALL YOU DO IS BUG ME WITH THAT MAN. I JUST WANT MY PAIN MEDS AND REST. I DONT WANT YOU TO CHANGE ANYTHING". EDUCATED RISKS VS BENEFITS BUT PATIENT CONTINUOUSLY REFUSED THROUGHOUT SHIFT. PATIENT BED ALARM IS ON. PATIENT BED IS LOCKED AND IN LOWEST POSITION. CALL LIGHT WITHIN REACH. WILL ENDORSE CARE TO PM SHIFT FOR DEB.
[2019-08-14 19:30] VITALS: BP 96/50
[2019-08-14 20:37] VITALS: BP 96/50
[2019-08-14 21:04] LABS: BASOPHILS % (AUTO) 0.3 % (0.0-2.0); EOSINOPHILS % (AUTO) 2.1 % (0.0-6.0); HEMATOCRIT 30 % (39-51); HEMOGLOBIN 9.3 g/dL (13.5-17.5); LYMPHOCYTES # (AUTO) 1.1 /CMM (0.8-4.8); LYMPHOCYTES % (AUTO) 11.5 % (20.0-44.0); MEAN CORPUSCULAR HGB CONC 31 g/dl (31.0-36.0); MEAN CORPUSCULAR VOLUME 78 fL (80-96); MONOCYTES # (AUTO) 0.4 /CMM (0.1-1.30); MONOCYTES % (AUTO) 4.8 % (2.0-12.0); NEUTROPHILS # (AUTO) 7.5 /CMM (1.8-8.9); NEUTROPHILS % (AUTO) 81.3 % (43.0-81.0); PLATELET COUNT (AUTO) 280 /CMM (150-450); RED BLOOD CELL COUNT(AUTO) 3.82 MIL/uL (4.5-6.0); WHITE BLOOD COUNT (AUTO) 9.2 K/uL (4.3-11.0)
[2019-08-14 21:13] LABS: CALCIUM, SERUM 8.1 mg/dL (8.5-10.1); CREATININE 0.9 mg/dL (0.6-1.3); POTASSIUM 3.8 mmol/L (3.5-5.1)
[2019-08-15] MEDS: diphenhydrAMINE HCL 50 MG/ML VIAL IV PRN ×2 (00:14→06:18)
[2019-08-15] MEDS: HYDROMORPHONE 1 MG/1 ML DISP.SYRIN IV PRN ×6 (01:12→21:53)
[2019-08-15] MEDS: HYDROCORTISONE SOD SUCCINATE 100 MG/2 ML VIAL IV SCH ×3 (02:57→18:06)
--- NOTE | 2019-08-15 06:40 | NUR ---
MS RN NOTES PATIENT IN BED, INTERMITTENT SLEEP, ALERT AND ORIENTED X 4. BREATHING EVEN AND UNLABORED ON ROOM AIR. SHOWS NO SIGNS OF ACUTE RESPIRATORY DISTRESS. NO ACUTE PAIN. IV ON R FEMORAL PICC LINE CLEAN DRY AND INTACT. SHOWS NO SIGNS OF INFILTRATION, NO REDNESS. SUPRAPUBIC CATH CLEAN DRY AND INTACT. FLOW CLEAR YELLOW URINE 2000ML OUT. ALL DUE MEDICATIONS GIVEN. PT REFUSED LAB DRAW, DRESSING CHANGE, AND COLOSTOMY CHANGE. SAFETY PRECAUTIONS IN PLACE. BED IN LOWEST POSITION, LOCKED, AND CALL LIGHT KEPT WITHIN REACH. WILL ENDORSE TO ONCOMING NURSE.
--- NOTE | 2019-08-15 07:30 | NUR ---
RN MS NOTES PT IN BED, AWAKE, ALERT AND ORIENTED, NO COMPLAINT AT THIS TIME, RESPIRATIONS NORMAL, CALL LIGHT WITHIN REACH, NEEDS ATTENDED.
[2019-08-15 08:00] VITALS: BP 111/57
[2019-08-15] MEDS: PANTOPRAZOLE 40 MG TABLET.DR PO SCH (08:05)
[2019-08-15] MEDS: ASPIRIN 81 MG TAB.CHEW PO SCH (08:05)
[2019-08-15] MEDS: ATORVASTATIN 10 MG TABLET PO SCH (08:05)
[2019-08-15] MEDS: VANCOMYCIN 1 GM in IV D5W 250ml IV SCH ×2 (08:05→20:12)
[2019-08-15] MEDS: HYDROCODONE/APAP 5/325MG 1 EACH TABLET PO PRN ×3 (08:08→23:22)
[2019-08-15] MEDS: ENOXAPARIN SODIUM 40 MG/0.4 ML DISP.SYRIN SQ SCH (08:14)
[2019-08-15] MEDS: PROSOURCE / PROSTAT (PYXIS) 30 ML UDC PO SCH ×2 (08:15→13:00)
[2019-08-15] MEDS: DAKINS QUARTER STRENGTH (0.125%) 480 ML BOTTLE TOP SCH (09:00)
[2019-08-15] MEDS: HYDROGEL DRESSING 90 GM TUBE TP SCH (09:00)
--- NOTE | 2019-08-15 11:53 | NUR ---
PROFESSIONAL APPLICATION DESIGNER contacted [place] [id number] hotline and spoke with Angelita, at [facility] regarding pt being homeless, requiring wound care and paraplegic. PROFESSIONAL APPLICATION DESIGNER informed Angelita, pt has no insurance and needs placement due to medical and wound care needs. Angelita informed PROFESSIONAL APPLICATION DESIGNER she will email her clinical program consultant and follow-up with SW. She also recommended for SW to contact [facility] Public [facility] for additional assistance.
--- NOTE | 2019-08-15 13:14 | NUR ---
RN MS NOTES PT IN BED, RESTING, NO COMPLAINT AT THIS TIME, PAIN MEDS GIVEN FOR PAIN MANAGEMENT, ASSISTED WITH NEEDS.
[2019-08-15 16:00] VITALS: BP 90/50
[2019-08-15 17:01] LABS: CALCIUM, SERUM 8.3 mg/dL (8.5-10.1)
--- NOTE | 2019-08-15 18:12 | NUR ---
RN MS NOTES PT IN BED, AWAKE, ALERT AND ORIENTED, PAIN MEDICATION GIVEN FOR PAIN MANAGEMENT, NOT IN DISTRESS, TOLERATES ROOM AIR, PT REFUSED SACRAL WOUND TREATMENT AND DRESSING CHANGE, REFUSED COLOSTOMY CHECK, STATED THAT HE IS OKAY, PM MEDS GIVEN, PM CARE PROVIDED, TOLERATES CURRENT DIET, SUPRAPUBIC CATH DRAINING WELL WITH CLEAR, YELLOW URINE, CALL LIGHT WITHIN REACH, NEEDS ATTENDED.
--- NOTE | 2019-08-15 18:45 | NUR ---
RN MS NOTES LAB ASKING IF IT IS OK TO ADD ON THE VANCO TROUGH SCHEDULED AT 1999 TO THIS AFTERNOON'S BLOOD DRAW, PT IS HARD STICK AND HAS EPISODES OF REFUSING BLOOD DRAWS, OK TO ADD PER AUDREY OF PHARMACY.
--- NOTE | 2019-08-15 19:16 | NUR ---
RN MS NOTES COLOSTOMY CARE PROVIDED, BAG CHANGED, PT STILL REFUSED WOUND CARE.
[2019-08-15 20:00] VITALS: BP 122/56
--- NOTE | 2019-08-15 20:00 | NUR ---
RN NOTES RECEIVED PT. AWAKE ON BED, RUDE AND TREATING A NURSE LIKE HIS SERVANT, THE MOMENT I STEPPED IN HE'S TELLING ME WHAT HIS PAIN MEDICATION DUE TIME... BLOOD PRESSURE WAS LOW THAT'S WHY WE RECHECK HIS BLOOD PRESSURE, NOT IN DISTRESS, NO PAIN NOTED, PATIENT IS EATING PIZZA, CALL LIGHT WITHIN REACH, [id number], CONTINUE TO MONITOR
--- NOTE | 2019-08-15 22:00 | NUR ---
RN NOTES COMPLAINED OF GENERALIZED PAIN- DILAUDID 2 MG IV GIVEN ORDERED, V/S STABLE
[2019-08-16] MEDS: ZOLPIDEM TARTRATE 5 MG TABLET PO PRN (00:16)
--- NOTE | 2019-08-16 02:30 | NUR ---
RN NOTES PT WAS UPSET BECAUSE I DIDN'T WAKE HIM UP AT 0200AM FOR HIS PAIN MEDICATION, I EXPLAINED TO THE PATIENT THAT WE DON'T WAKE UP THE PATIENT IF THE PATIENT IS SLEEPING FOR PAIN MEDICATION, HIS DILAUDID IS ONLY NEEDED NOT A ROUTINE. PATIENT ASKED FOR HIS PAIN MEDICATION- DILAUDID 2MG IV GIVEN ORDERED, PER PATIENT I DIDN'T GIVE IT BECAUSE HE DID NOT FEEL IT. I EXPLAINED TO THE PATIENT THAT I ALREADY GIVE IT AND I CAN'T BRIANDA ANOTHER 2MG IV. CHARGE NURSE MADE AWARE
[2019-08-16] MEDS: HYDROCORTISONE SOD SUCCINATE 100 MG/2 ML VIAL IV SCH ×2 (02:38→08:22)
[2019-08-16] MEDS: HYDROMORPHONE 1 MG/1 ML DISP.SYRIN IV PRN ×3 (02:39→10:06)
--- NOTE | 2019-08-16 06:00 | NUR ---
RN NOTES COMPLAINED OF GENERALIZED PAIN- DILAUDID 2MG IV GIVEN ORDERED, V/S STABLE
--- NOTE | 2019-08-16 06:38 | NUR ---
RN NOTES PT. REFUSED SKIN CARE, MORNING CARE, NOT IN DISTRESS, CALL LIGHT WITHIN REACH, [id number], PT. NEEDS ATTENDED
[2019-08-16] MEDS: HYDROCODONE/APAP 5/325MG 1 EACH TABLET PO PRN ×2 (08:20→15:05)
[2019-08-16] MEDS: ASPIRIN 81 MG TAB.CHEW PO SCH (08:22)
[2019-08-16] MEDS: ATORVASTATIN 10 MG TABLET PO SCH (08:22)
[2019-08-16] MEDS: PANTOPRAZOLE 40 MG TABLET.DR PO SCH (08:22)
[2019-08-16] MEDS: ENOXAPARIN SODIUM 40 MG/0.4 ML DISP.SYRIN SQ SCH (08:23)
[2019-08-16] MEDS: HYDROGEL DRESSING 90 GM TUBE TP SCH (09:00)
[2019-08-16] MEDS: DAKINS QUARTER STRENGTH (0.125%) 480 ML BOTTLE TOP SCH (09:00)
[2019-08-16] MEDS: VANCOMYCIN 1 GM in IV D5W 250ml IV SCH (10:08)
[2019-08-16] MEDS: diphenhydrAMINE HCL 50 MG/ML VIAL IV PRN (11:19)
--- NOTE | 2019-08-16 14:20 | NUR ---
PATIENT INFORMED THAT IV MED D/C TODAY DUE TO PATIENT WILL BE D/C , AWAITING FOR PLACEMENT.
--- NOTE | 2019-08-16 16:00 | NUR ---
PATIENT STATES HE WANT'S TO LEAVE AMA. INFORMED AND INFORMATION SYSTEMS OPERATOR INFORMED. EXPLAINED PATIENT BENEFITS TO WAIT FOR PLACEMENT AND PROPER DISCHARGE. PATIENT STILL REFUSING.
--- NOTE | 2019-08-16 16:30 | NUR ---
PATIENT SIGHED AMA, REFUSED D/C PAPERWORK. PATIENT'S COLOSTOMY BAG CHANGED ., PICC LINE REMOVED AND ALL DRESSINGS CHANGED. ASSISTED WITH DRESSING AND SAFELY TRANSFERRED TO [facility] VIA OWN WHEELCHAIR ACCOMPANIED BY KOMAL SIMMS. ALL BELONGINGS WITH THE PATIENT. REFUSED PROPER DISCHARGE AND PAPERWORK.
--- NOTE | 2019-08-16 18:01 | NUR ---
RECEIVED PATIENT IN NO ACUTE DISTRESS. NO SOB NOTED. PATIENT BREATHING IS EVEN AND UNLABORED. SAFETY PRECAUTIONS OBSERVED. SUPRAPUBIC CATH PATENT AND DRAINING CLEAR YELLOW URINE. PATIENT STATED RIGHT AWAY " I JUST WANT MY PAIN MEDS AND REST; DON'T BUG ME WITH YOUR CARE, I DON'T NEED THAT".
== END 2019-08-16 16:30 | disposition left against medical advice (07) | DRG 917 ==
LOC: ER 12:20 → ICU 20:30 → ICUOV 08-06 21:37 → TELE-TD 08-10 15:54 → ICUOV 08-10 18:21 → MEDSG1 08-11 11:47 → MED 08-11 20:15
PROVIDERS: ADMIT Nurse Practitioner Acute Care
PROC: 06HY33Z Insertion of Infusion Device into Lower Vein, Percutaneous Approach (ICD-10-PCS; principal; 2019-08-06)
DX: T42.4X1A Poisoning by benzodiazepines, accidental (unintentional), initial encounter (principal); A41.9 Sepsis, unspecified organism; L89.324 Pressure ulcer of left buttock, stage 4; L89.314 Pressure ulcer of right buttock, stage 4; L89.024 Pressure ulcer of left elbow, stage 4; L89.154 Pressure ulcer of sacral region, stage 4; N17.0 Acute kidney failure with tubular necrosis; R65.21 Severe sepsis with septic shock; I21.A1 Myocardial infarction type 2; R57.1 Hypovolemic shock; E43 Unspecified severe protein-calorie malnutrition; J69.0 Pneumonitis due to inhalation of food and vomit; G92 Toxic encephalopathy; L03.114 Cellulitis of left upper limb; N39.0 Urinary tract infection, site not specified; G82.20 Paraplegia, unspecified; J98.11 Atelectasis; D68.59 Other primary thrombophilia; Z68.41 Body mass index [BMI] 40.0-44.9, adult; Z16.12 Extended spectrum beta lactamase (ESBL) resistance; F15.129 Other stimulant abuse with intoxication, unspecified; T40.601A Poisoning by unspecified narcotics, accidental (unintentional), initial encounter; D50.9 Iron deficiency anemia, unspecified; Z93.3 Colostomy status; Z59.0 Homelessness; Z89.611 Acquired absence of right leg above knee; Z89.612 Acquired absence of left leg above knee; D47.3 Essential (hemorrhagic) thrombocythemia; N31.9 Neuromuscular dysfunction of bladder, unspecified; F41.9 Anxiety disorder, unspecified; F32.9 Major depressive disorder, single episode, unspecified; Z87.891 Personal history of nicotine dependence; R74.0 Nonspecific elevation of levels of transaminase and lactic acid dehydrogenase [LDH]; F19.90 Other psychoactive substance use, unspecified, uncomplicated; I73.9 Peripheral vascular disease, unspecified; R53.1 Weakness; M24.522 Contracture, left elbow; M24.521 Contracture, right elbow; M24.542 Contracture, left hand; M24.541 Contracture, right hand; T87.89 Other complications of amputation stump; Y83.9 Surgical procedure, unspecified as the cause of abnormal reaction of the patient, or of later complication, without mention of misadventure at the time of the procedure; Z22.322 Carrier or suspected carrier of Methicillin resistant Staphylococcus aureus; B95.62 Methicillin resistant Staphylococcus aureus infection as the cause of diseases classified elsewhere; Y92.89 Other specified places as the place of occurrence of the external cause; B96.1 Klebsiella pneumoniae [K. pneumoniae] as the cause of diseases classified elsewhere; R40.2412 Glasgow coma scale score 13-15, at arrival to emergency department
CPT/HCPCS: 36415; 36569; 38221; 70450-TC; 71045-TC; 80048-TC; 80053-TC; 80061-TC; 80076-TC; 80202-TC; 80305; 81000-TC; 82533; 82728-TC; 83540-TC; 83605-TC; 83615-TC; 83735-TC; 84100-TC; 84443-TC; 84484-TC; 85025-TC; 85045-TC; 85652-TC; 85730-TC; 86140-TC; 86803; 87040-TC; 87070-TC; 87081-TC; 87086-TC; 87186-TC; 87806; A6248; A6253; A6403; C1751; G0378; J0696; J1170; J1200; J1644; J1650; J1720; J2185; J2310; J2543; J2916; J3370; J3475; J7030; J7040; J7050; J7060; Q0163

== ENCOUNTER 2019-08-30 16:02 | Emergency (ER) | payer MEDICARE, SELFPAY ==
[~2019-08-30] VITALS: Ht 152.4 cm; Wt 68.0 kg
[2019-08-30] MEDS ORDERED: LORAZEPAM 1 MG TABLET ONE (16:32)
[2019-08-30] MEDS: LORAZEPAM 1 MG TABLET PO ONE (16:47)
--- NOTE | 2019-08-30 16:50 | NUR ---
BIBS TO ER BED 6. AAOX4. NOT IN RESP DISTRESS. AMBULATORY W/ AN AIDE OF A WHEELCHAIR. CAME IN FOR CHEST PAIN WHICH HE REPORTS BEEN HAPPENING SINCE 2006. PAIN IS MID STERNAL NON RADIATING WHICH IS AGGREAVTED BY BREATHING. PT STATES THAT HE IS ANXIOUS. MD WAS AT BEDSIDE FOR EVAL. ORDERS RECEIVED NOTED AND CARRIED OUT.
[2019-08-30] MEDS ORDERED: ACETAMINOPHEN ES 500 MG TABLET ONE (17:10)
--- NOTE | 2019-08-30 17:26 | NUR ---
pt complained of back pain. md made aware. verbal order received to give Tylenol 1000mg PO x 1 dose. noted and carried out.
[2019-08-30] MEDS: ACETAMINOPHEN ES 500 MG TABLET PO ONE (17:27)
[2019-08-30 17:37] LABS: BASOPHILS # (AUTO) 0.1 /CMM (0.0-0.2); BASOPHILS % (AUTO) 0.6 % (0.0-2.0); EOSINOPHILS % (AUTO) 2.8 % (0.0-6.0); HEMATOCRIT 32 % (39-51); LYMPHOCYTES % (AUTO) 9.7 % (20.0-44.0); MEAN CORPUSCULAR HGB CONC 31 g/dl (31.0-36.0); MEAN CORPUSCULAR VOLUME 78 fL (80-96); MONOCYTES # (AUTO) 0.4 /CMM (0.1-1.30); MONOCYTES % (AUTO) 3.9 % (2.0-12.0); NEUTROPHILS # (AUTO) 8.2 /CMM (1.8-8.9); PLATELET COUNT (AUTO) 374 /CMM (150-450); RED BLOOD CELL COUNT(AUTO) 4.09 MIL/uL (4.5-6.0); WHITE BLOOD COUNT (AUTO) 9.8 K/uL (4.3-11.0)
[2019-08-30 17:50] LABS: CALCIUM, SERUM 9.2 mg/dL (8.5-10.1); CARBON DIOXIDE 20 mmol/L (21-32); CHLORIDE 99 mmol/L (98-107); CREATININE 0.8 mg/dL (0.6-1.3); GLUCOSE 97 mg/dL (74-106); SODIUM SERUM 134 mmol/L (136-145); UREA NITROGEN, BLOOD 13 mg/dL (7-18)
[2019-08-30 17:56] LABS: ALANINE AMINOTRANSFERASE 33 U/L (12-78); ALBUMIN 2.7 g/dL (3.4-5.0); ALKALINE PHOSPHATASE 125 U/L (46-116); ASPARTATE AMINOTRANSFERASE 20 U/L (15-37); BILIRUBIN,TOTAL 0.2 mg/dL (0.2-1.0); TOTAL PROTEIN, SERUM 7.8 g/dL (6.4-8.2)
[2019-08-30] MEDS ORDERED: HYDROCODONE/APAP 5/325MG 1 EACH TABLET ONE (18:19)
[2019-08-30] MEDS: HYDROCODONE/APAP 5/325MG 1 EACH TABLET PO ONE (18:37)
[2019-08-30 18:38] VITALS: BP 118/76
== END 2019-08-30 18:43 | disposition home or self-care (01) ==
LOC: ER 16:05
DX: J90 Pleural effusion, not elsewhere classified (principal); R07.89 Other chest pain; E87.6 Hypokalemia; Z89.612 Acquired absence of left leg above knee; Z89.611 Acquired absence of right leg above knee; Z88.1 Allergy status to other antibiotic agents; Z88.8 Allergy status to other drugs, medicaments and biological substances; Z59.0 Homelessness; Z79.899 Other long term (current) drug therapy
CPT/HCPCS: 36415; 71045; 80048; 80076; 84484; 85025; 93005 ×3; 99285; A4362

== ENCOUNTER 2019-08-30 22:42 | Emergency (ER) | payer MEDICARE ==
[~2019-08-30] VITALS: Ht 152.4 cm; Wt 68.0 kg
[2019-08-30] MEDS ORDERED: IV NS 0.9% 1,000 ML BAG IV ONE (23:00)
[2019-08-30 23:18] LABS: BASOPHILS # (AUTO) 0.1 /CMM (0.0-0.2); BASOPHILS % (AUTO) 0.6 % (0.0-2.0); EOSINOPHILS % (AUTO) 3.1 % (0.0-6.0); HEMATOCRIT 33 % (39-51); HEMOGLOBIN 10.3 g/dL (13.5-17.5); LYMPHOCYTES # (AUTO) 1.3 /CMM (0.8-4.8); LYMPHOCYTES % (AUTO) 12.1 % (20.0-44.0); MEAN CORPUSCULAR HGB CONC 31 g/dl (31.0-36.0); MEAN CORPUSCULAR VOLUME 78 fL (80-96); MONOCYTES # (AUTO) 0.5 /CMM (0.1-1.30); MONOCYTES % (AUTO) 4.8 % (2.0-12.0); NEUTROPHILS # (AUTO) 8.4 /CMM (1.8-8.9); NEUTROPHILS % (AUTO) 79.4 % (43.0-81.0); PLATELET COUNT (AUTO) 380 /CMM (150-450); RED BLOOD CELL COUNT(AUTO) 4.21 MIL/uL (4.5-6.0); WHITE BLOOD COUNT (AUTO) 10.6 K/uL (4.3-11.0)
[2019-08-30 23:29] LABS: CALCIUM, SERUM 9.1 mg/dL (8.5-10.1); CREATININE 0.7 mg/dL (0.6-1.3); POTASSIUM 3.1 mmol/L (3.5-5.1)
[2019-08-30 23:38] LABS: APPEARANCE,URINE Clear (CLEAR); BILIRUBIN,URINE Negative (NEGATIVE); BLOOD, URINE Negative Ery/uL (NEGATIVE); COLOR,URINE Yellow (YELLOW); KETONES,URINE Negative (NEGATIVE); LEUKOCYTE ESTERASE ,URINE Small (NEGATIVE); NITRITE, URINE Negative (NEGATIVE); PROTEIN,URINE Negative (NEGATIVE); UGLUCOSE Negative (NEGATIVE); UROBILINOGEN,URINE 0.2 EU/dL (0.2)
[2019-08-31] MEDS ORDERED: POTASSIUM CHLORIDE 20 MEQ TAB.PRT.SR PO ONE ×2
--- NOTE | 2019-08-31 00:14 | NUR ---
Patient does not wish to proceed with medical care recommended by Dr. Damon. Patient given information related to possible complications, up to and including , which could occur as a result of leaving the hospital at this time. Patient verbalizes understanding of risks involved due to leaving against medical advice. Patient has signed AMA form.
[2019-08-31 00:18] VITALS: BP 122/69
[2019-08-31 00:46] LABS: RBC,URINE 0-2 /HPF (0-2); WBC,URINE 0-2 /HPF (0-3)
[2019-08-31 00:47] LABS: BACTERIA,URINE None seen /HPF (None Seen); SQUAMOUS EPITHELIAL CELL,UR Few /HPF (None Seen)
== END 2019-08-31 00:18 | disposition home or self-care (01) ==
LOC: ER 22:43
DX: E87.6 Hypokalemia (principal); R52 Pain, unspecified; I95.9 Hypotension, unspecified; Z76.5 Malingerer [conscious simulation]; Z89.612 Acquired absence of left leg above knee; Z89.611 Acquired absence of right leg above knee; Z88.1 Allergy status to other antibiotic agents; Z88.8 Allergy status to other drugs, medicaments and biological substances; Z59.0 Homelessness; Z79.899 Other long term (current) drug therapy
CPT/HCPCS: 36415; 71045; 80048; 80305; 81001; 85025; 99284; J7030; 81000-TC

== ENCOUNTER 2019-08-31 01:40 | Inpatient (IN) | payer MEDICAID, MEDICARE ==
[~2019-08-31] VITALS: Ht 152.4 cm; Wt 68.5 kg
--- NOTE | 2019-08-31 01:43 | NUR ---
PT AAOX4. BIBRA C/O LOW BP. PLACED ON MONITOR AND PULSE OX. PT STATING HE IS IN PAIN DUE TO HIS "BOTTOM" HURTING. UPON ASSESSMENT LEFT ELBOW WOUND NOTED, BIALTERAL ABOVE THE KNEE AMPUTATION, AND MULTIPLE SMALL WOUNDS NOTED. MALGORZATA. AT BEDSIDE FOR EVAL. ALSO NOTED COLOSTOMY BAG AND ALAMO CATHETER.
[2019-08-31] MEDS ORDERED: IV NS 0.9% 1,000 ML BAG IV ONE (02:00)
[2019-08-31] MEDS ORDERED: Z GUARD REMEDY 2 OZ OINT TP PRN (02:30)
[2019-08-31] MEDS ORDERED: ACETAMINOPHEN 325 MG TABLET PO PRN (02:30)
[2019-08-31] MEDS ORDERED: ONDANSETRON HCL/PF 4 MG/2 ML VIAL IVP PRN (02:30)
[2019-08-31] MEDS ORDERED: MAG HYDROX/AL HYDROX/SIMETH 30 ML UDC PO PRN (02:30)
[2019-08-31] MEDS ORDERED: MAGNESIUM HYDROXIDE 30 ML UDC PO PRN (02:30)
--- NOTE | 2019-08-31 02:42 | NUR ---
Patient is resting comfortably in bed. Easily aroused. VSS.
--- NOTE | 2019-08-31 03:14 | NUR ---
PT ASLEEP. VSS.
--- NOTE | 2019-08-31 03:48 | NUR ---
REPORT GIVEN TO ROLAND RODRIGUEZ FOR DEB
[2019-08-31 04:00] VITALS: BP 145/93
--- NOTE | 2019-08-31 04:12 | NUR ---
PT TRANSFERED PER ACLS PROTOCOL
--- NOTE | 2019-08-31 04:15 | NUR ---
SENIOR ELECTRICAL PROJECT MANAGERPASTRY DECORATOR NOTES PATIENT TRANSFERRED FROM ER IN STABLE CONDITION VIA GURNEY. A/OX3. STABLE ON RA. B/L ABOVE THE KNEE AMPUTATION PRESENT; PATIENT'S WHEELCHAIR PLACED AT THE BEDSIDE ALONGSIDE BELONGINGS. TELE MONITOR READING NSR, HEART RATE 95. PATIENT REFUSED FULL BODY SKIN ASSESSMENT AND PHOTOS AT THIS TIME. PATIENT C/O OF GENERALIZED PAIN AND IS REQUESTING FOR ATIVAN AND PAIN MEDICATION. IV PRESENT ON RIGHT THIGH, SIZE 20, INTACT & PATENT, HEP LOCKED. COLOSTOMY BAG AND SUPRAPUBIC CATHETER PRESENT; BOTH EMPTIED IN ER BEFORE ARRIVAL ON UNIT. BELONGINGS REVIEWED WITH PATIENT AND VERIFIED ON BELONGINGS LIST. ORDERS PLACED BY SALES ACCOUNT LEADER ROBINSON MIGUEL. SAFETY MEASURES IN PLACE AND PATIENT'S NEEDS MET. WILL CONTINUE TO MONITOR.
--- NOTE | 2019-08-31 07:26 | NUR ---
rn notes patient received on room air, no sob noted, patient denies pain at this time but is asking for ativan right away. open wound with the stump and refuses it to be covered. r thigh IV line present. colostomy present and a suprapubic present and is draining. bed at the lowest setting, call light within reach, side rails up x2.
[2019-08-31] MEDS: IV NS 0.9% 1,000 ML IV PRN (07:43)
[2019-08-31] MEDS: LORAZEPAM INJ 2 MG/ML VIAL IV PRN ×2 (07:45→16:05)
[2019-08-31] MEDS: MORPHINE SULFATE INJ 2 MG/ML DISP.SYRIN IV PRN ×4 (07:52→22:36)
--- NOTE | 2019-08-31 07:53 | NUR ---
SEAT COVER CUTTER NOTES ADMINISTERED PRN MORPHINE 2MG IV PUSH FOR PAIN AT 0700. FORGOT TO SCAN MEDICATION. MANUALLY ENTERED MEDICATION THROUGH EMAR. INFORMED DAY SHIFT RN AND CHARGE NURSE.
--- NOTE | 2019-08-31 07:55 | NUR ---
ADVANCE AGENT CLOSING NOTES PATIENT AWAKE IN BED. A/OX4. STABLE ON RA. TELE MONITOR READING NSR. NO S/S OF ACUTE RESPIRATORY DISTRESS. IV ON RIGHT THIGH REMAINS INTACT & PATENT. SAFETY MEASURES IN PLACE AND PATIENT'S NEEDS MET. ENDORSED TO DAY SHIFT NURSE PLAN OF CARE.
[2019-08-31 08:44] VITALS: BP 118/60
[2019-08-31 09:48] LABS: CALCIUM, SERUM 8.7 mg/dL (8.5-10.1); CARBON DIOXIDE 23 mmol/L (21-32); CHLORIDE 103 mmol/L (98-107); CREATININE 0.8 mg/dL (0.6-1.3); GLUCOSE 137 mg/dL (74-106); POTASSIUM 3.7 mmol/L (3.5-5.1); SODIUM SERUM 136 mmol/L (136-145); UREA NITROGEN, BLOOD 14 mg/dL (7-18)
--- NOTE | 2019-08-31 15:17 | NUR ---
rn notes patient refuses covid testing x3. Stated that hes "cool with the results he has", explained that he can easily get it post hospital stay but refuses at this time.
[2019-08-31 15:55] LABS: HEMATOCRIT 35 % (39-51); HEMOGLOBIN 10.3 g/dL (13.5-17.5); MEAN CORPUSCULAR HGB CONC 29 g/dl (31.0-36.0); MEAN CORPUSCULAR VOLUME 82 fL (80-96); PLATELET COUNT (AUTO) 352 /CMM (150-450); RED BLOOD CELL COUNT(AUTO) 4.27 MIL/uL (4.5-6.0); WHITE BLOOD COUNT (AUTO) 6.2 K/uL (4.3-11.0)
[2019-08-31 16:00] VITALS: BP 133/85
[2019-08-31 16:58] LABS: EOSINOPHILS % (MANUAL) 2 % (0-4); LYMPHOCYTES % (MANUAL) 12 % (16-48); MONOCYTES % (MANUAL) 5 % (0-11.0); NEUTROPHILS % (MANUAL) 81 (42-76)
--- NOTE | 2019-08-31 18:47 | NUR ---
rn notes patient remains on room air, no sob noted, patient refused to have his open wound covered. right stump and left elbow. bed at the lowest setting, call light within reach, side rails up x2,.
--- NOTE | 2019-08-31 19:20 | NUR ---
MS RN NOTES RECEIVED PT IN BED AWAKE AND ABLE TO MAKE NEEDS KNOWN. PT A/O X3. RESPIRATIONS EVEN AND UNLABORED WITH NO S/S OF ACUTE DISTRESS OR SOB NOTED. NO COMPLAINTS OF PAIN AT THIS TIME. SAFETY MEASURES IN PLACE WITH BED IN LOWEST LOCKED POSITION WITH SIDE RAILS UP X2. CALL LIGHT WITHIN REACH. WILL CONTINUE TO MONITOR.
[2019-08-31 20:00] VITALS: BP 144/82
[2019-08-31] MEDS: HYDROCODONE/APAP 5/325MG 1 EACH TABLET PO PRN (20:24)
--- NOTE | 2019-08-31 22:00 | NUR ---
MS RN NOTES PT YELLING AND VERBALLY ABUSIVE. WILL CONTINUE TO MONITOR.
[2019-09-01] VITALS (8 sets, daily range): BP systolic 86–125; BP diastolic 46–87
--- NOTE | 2019-09-01 | NUR ---
MS RN NOTES PT CONTINUES TO BE VERBALLY ABUSIVE AND CONTINUES TO YELL. WILL CONTINUE TO MONITOR.
[2019-09-01] MEDS: LORAZEPAM INJ 2 MG/ML VIAL IV PRN ×2 (00:07→09:52)
[2019-09-01] MEDS: TEMAZEPAM 15 MG CAPSULE PO PRN ×4 (01:59→22:07)
--- NOTE | 2019-09-01 02:00 | NUR ---
MS RN NOTES PT CONTINUES TO BE VERBALLY ABUSIVE AND CONTINUES TO YELL. PT CONTINUES TO THROW ITEMS ONTO FLOOR THEN CALLS STAFF TO COME PICK IT UP AND THEN ALLOWS TIME TO PASS AND THROWS ITEMS ONTO FLOOR TO CALL STAFF TO MIXER TENDER ITEMS. WILL CONTINUE TO MONITOR.
--- NOTE | 2019-09-01 03:16 | NUR ---
MS RN NOTES PT CONTINUES TO BE VERBALLY ABUSIVE AND CONTINUES TO YELL. WILL CONTINUE TO MONITOR.
[2019-09-01] MEDS: MORPHINE SULFATE INJ 2 MG/ML DISP.SYRIN IV PRN ×2 (03:18→07:48)
--- NOTE | 2019-09-01 03:18 | NUR ---
MS RN NOTES PT CONTINUES TO PLAY MUSIC LOUDLY IN UNIT AFTER BEING ASKED IF HE WOULD TURN DOWN THE SOUND BECAUSE OTHER PATIENTS ARE SLEEPING. PT REFUSED TO DO SO AND CONTINUED TO PLAY MUSIC LOUDLY. WILL CONTINUE TO MONITOR.
--- NOTE | 2019-09-01 06:24 | NUR ---
MS RN NOTES PT REFUSED MORNING LAB DRAW. PT STATED "COME BACK LATER, NOT RIGHT NOW." WILL CONTINUE TO MONITOR.
--- NOTE | 2019-09-01 07:48 | NUR ---
RN NOTES PATIENT WAS COMPLAINING OF PAIN BILATERAL AKA PHANTOM PAIN 8/10 PER PAIN SCALE, PER PATIENT REQUEST , V/S TAKEN BP -118/59, P-92, R-19. CONTINUED MONITORING.
--- NOTE | 2019-09-01 08:00 | NUR ---
RN NOTES RECEIVED PATIENT IN THE BED A/O X3, NO ACUTE RESPIRATORY DISTRESS. ON ROOM AIR. PATIENT HAS BILATERAL AKA , SUPRAPUBIC CATHETER DRAINING LIGHT YELLOW OUTPUT, IV ACCESS ON RIGHT THIGH INTACT, REFUSED IV NS AT 75 ML INFUSION. TOLERATED BREAKFAST WELL. BOTH HAND HAS A CONTRACTION, REFUSED ASSIST FOR FEEDING, AND REFUSED WOUND ASSESSMENT. COLOSTOMY INTACT. PATIENT TURN AND REPOSTION SELF IN THE BED. CALL LIGHT WITHIN TO REACH. SAFETY PRECAUTION MAINTAINED ALL THE TIME.
--- NOTE | 2019-09-01 08:08 | NUR ---
MS RN NOTES PT IN BED AWAKE AND ABLE TO MAKE NEEDS KNOWN. PT A/O X3. RESPIRATIONS EVEN AND UNLABORED WITH NO S/S OF ACUTE DISTRESS OR SOB NOTED THROUGHOUT SHIFT. NO COMPLAINTS OF PAIN AT THIS TIME. SAFETY MEASURES IN PLACE WITH BED IN LOWEST LOCKED POSITION WITH SIDE RAILS UP X2. CALL LIGHT WITHIN REACH. WILL ENDORSE TO ONCOMING NURSE FOR DEB.
[2019-09-01] MEDS: IV NS 0.9% 1,000 ML IV PRN (08:28)
--- NOTE | 2019-09-01 09:52 | NUR ---
RN NOTES ADMINISTERED ATIVAN 1 MG /ML IV PUSH FOR ANXIETY PER PAIN REQUEST,V/S TAKEN BP 96/58,P-86. PATIENT VERY ARGUMENTATIVE, NEEDY, GET IRRITABLE EASILY. CHARGE NURSE NOTIFIED.
[2019-09-01] MEDS: HYDROCODONE/APAP 5/325MG 1 EACH TABLET PO PRN ×3 (11:31→20:16)
--- NOTE | 2019-09-01 11:31 | NUR ---
RN NOTES ADMINISTERED NARCO 5/325 MG PO PRN FOR GENERALIZED PAIN 12/11 PER PATIENT REQUEST,V/S TAKEN BP 95/47, P-89. R-18. ENCOURAGED PATIENT IN CREASE FLUID INTAKE.
--- NOTE | 2019-09-01 11:41 | NUR ---
RN NOTES PATIENT REFUSED COVID TESTING. . PATIENT STATE "LATER". CONTINUED MONITORING.
--- NOTE | 2019-09-01 12:00 | NUR ---
RN NOTES PATIENT REFUSED COVID-19 TESTING. PATIENT STATE "LATER". CHARGE NURSE AWARE OF.
[2019-09-01 12:48] LABS: CALCIUM, SERUM 8.4 mg/dL (8.5-10.1); CREATININE 0.5 mg/dL (0.6-1.3); MAGNESIUM 1.5 mg/dL (1.8-2.4); PHOSPHORUS 3.3 mg/dL (2.5-4.9); POTASSIUM 3.8 mmol/L (3.5-5.1)
[2019-09-01] MEDS ORDERED: diphenhydrAMINE HCL 25 MG CAPSULE PO PRN (14:00)
[2019-09-01] MEDS: Magnesium 1GM/D5W 100ML PREMIX 100 ML IV SCH ×2 (14:18→15:00)
--- NOTE | 2019-09-01 14:18 | NUR ---
RN NOTES ADMINISTERED BENADRYL 25 MG PO PRN FOR ITCHING. INFUSING MG 100ML/HR IN RIGHT THIGH INTACT.
--- NOTE | 2019-09-01 15:32 | NUR ---
RN NOTES ADMINISTERED NARCO 5/325 MG PO PRN FOR BILATERAL AKA LEGS PER PATIENT REQUEST, V/S TAKEN BP 98/49, P-88, R-18. CONTINUED MONITORING.
[2019-09-01] MEDS: MAGNESIUM OXIDE 400 MG TABLET PO ONE ×2 (16:00→16:08)
--- NOTE | 2019-09-01 16:03 | NUR ---
RN NOTES PATIENT IV ACCESS GET INFILTRATED ON RIGHT THIGH, UNABLE TO INSERT NEW IV ACCESS, PER HOSPITALIST CHANGE MAGNESIUM 400 MG PO X1 PO. ORDER TAKEN AND CARRIED OUT.
--- NOTE | 2019-09-01 16:21 | NUR ---
RN NOTES PATIENT HAS FREQUENCY, AND CONSEQUENCES AND AGGRESSIVE BEHAVIOR TOWARD STAFF, VERBALLY ABUSIVE. HARD TO FOLLOW DIRECTION, REFUSED INFILTRATED IV ACCESS TO BED REMOVED, REFUSED MAGNESIUM 400 MG PO TO BE TAKEN, CHARGE NURSE AWARE OF. CONTINUED MONITORING.
--- NOTE | 2019-09-01 18:12 | NUR ---
rn notes wasted ativan 1 mg /ml iv because iv access not working, when wasting medication does not give option to witness waste. i waste medication with co worker Armaan Ramirez RN. pharmacist Jose Antonio notified.
[2019-09-01] MEDS: LORAZEPAM 1 MG TABLET PO PRN (18:18)
--- NOTE | 2019-09-01 18:18 | NUR ---
RN NOTES ADMINISTERED ATIVAN 1 MG PO PRN FOR ANXIETY PER PATIENT REQUEST, V/S TAKEN BP 96/65, P-91.CONTINUED MONITORING.
--- NOTE | 2019-09-01 18:30 | NUR ---
RN NOTES MEDICATION WERE ADMINISTERED FOR ANXIETY EFFECTIVE, PATIENT STABLE IN THE BED, TOLERATED DINNER WELL. REFUSED PAIN AT THIS TIME. CALL LIGHT WITHIN TO REACH. ENDORSED ONCOMING NURSE FOLLOW PLAN OF CARE.
--- NOTE | 2019-09-01 19:50 | NUR ---
RN NOTES RECEIVED PATIENT AWAKE ALERT ORIENTED X3. PATIENT HAS FREQUENCY, AND CONSEQUENCES AND AGGRESSIVE BEHAVIOR TOWARD STAFF, VERBALLY ABUSIVE. HARD TO FOLLOW DIRECTION. NO IV ACCESS, PATIENT REFUSED IV RE INSERTION. COLOSTOMY BAG INTACT AND IN PLACED, PATIENT WANTS TO DO HIS OWN CLEANING. SAFETY MEASURES IN PLACE, CALL LIGHT WITH IN EASY REACH. REPOSITIONED FOR COMFORT WILL CONTINUE TO MONITOR ACCORDINGLY.
[2019-09-01 22:04] LABS: HEMATOCRIT 34 % (39-51); HEMOGLOBIN 10.5 g/dL (13.5-17.5); MEAN CORPUSCULAR HGB CONC 31 g/dl (31.0-36.0); MEAN CORPUSCULAR VOLUME 77 fL (80-96); PLATELET COUNT (AUTO) 423 /CMM (150-450); RED BLOOD CELL COUNT(AUTO) 4.39 MIL/uL (4.5-6.0)
[2019-09-01] MEDS: ZOLPIDEM TARTRATE 5 MG TABLET PO PRN (22:29)
--- NOTE | 2019-09-01 22:35 | NUR ---
RN NOTES CALLED AND SPOKE TO DR. HERRON, INFORMED HIM THAT THE PATIENT REFUSED TO TAKE RESTORIL 15 MG TAB PO PRN HS ( SLEEP ). REQUESTING AMBIEN 10 MG TAB INSTEAD. MADE AWARE THAT PATIENT IS VERBALLY ABUSIVE, YELLING, NEEDY, AND AGGRESSIVE. DR. HERRON ORDERED TO DISCONTINUE RESTORIL AN GIVE AMBIEN 5MG TAB PO PRN FOR SLEEP.
[2019-09-01 22:36] LABS: BAND % (MANUAL) 9 % (0.0-5.0); EOSINOPHILS % (MANUAL) 6 % (0-4); LYMPHOCYTES % (MANUAL) 10 % (16-48); MONOCYTES % (MANUAL) 2 % (0-11.0); NEUTROPHILS % (MANUAL) 73 (42-76)
[2019-09-02] MEDS: HYDROCODONE/APAP 5/325MG 1 EACH TABLET PO PRN ×3 (04:23→15:41)
--- NOTE | 2019-09-02 06:37 | NUR ---
RN NOTES ALL NEEDS ATTENDED AND MET ABLE TO REST AND SLEPT AT INTERVALS. KEPT CLEAN WARM DRY AND COMFORTABLE.SAFETY MEASURES INPLACE. WAS ABLE TO CONVINCED TO TAKE PHOTOS OF SKIN PROBLLEM. FOR WOUND CONSULT AND TREATMENT. WILL ENDORSE TO AM NURSE FOR CONTINUITY OF CARE.
--- NOTE | 2019-09-02 07:32 | NUR ---
MS RN OPENING NOTES RECEIVED PATIENT IN BED, ASLEEP AT THIS TIME. PATIENT IS ON ROOM AIR; BREATHING IS EVEN AND UNLABORED; NO SOB PRESENT AT THIS TIME. NO COMPLAINS OF PAIN. PATIENT IS MISSING IV ACCESS. PER ABORIGINAL EDUCATION TEACHER NURSE HE REFUSES AN IV ACCESS AND MD IS AWARE. COLOSTOMY BAG PRESENT AND SUPRAPUBIC CATH IS IN PLACE. SAFETY PRECAUTIONS IN PLACE; BED IN LOW POSITION AND LOCKED, RAILS UP X2, CALL LIGHT WITHIN REACH. WILL CONTINUE TO MONITOR PATIENT.
[2019-09-02 08:00] VITALS: BP 108/63
--- NOTE | 2019-09-02 08:34 | NUR ---
WOUND CARE CONSULT: PT REFUSED SKIN ASSESSMENT. PER ADMISSION PHOTOS THERE ARE MULTIPLE WOUNDS PRESENT ON ADMISSION INCLUDING LEFT ELBOW WOUND, SACRAL WOUND WHICH EXTENDS TO BILATERAL BUTTOCKS AND RT ABOVE KNEE AMPUTATION STUMP WOUND. RECOMMEND SURGICAL CONSULT. DR DICKSON NOTIFIED OF CONSULT REQUEST. DISCUSSED SKIN PROTECTION WITH NURSING STAFF. PT IS ON MODALE ISOFLEX LOW AIRLOSS BED. WILL SEE PRPaulie MIGUEL IN AGREEMENT WITH PLAN OF CARE.
[2019-09-02] MEDS: LORAZEPAM 1 MG TABLET PO PRN ×2 (09:15→18:20)
--- NOTE | 2019-09-02 10:26 | NUR ---
MS RN NOTES PATIENT REQUESTING PAIN MEDICATION 10/10 GENERAL PLUS WOUNDS. PRN MEDICATION ADMINISTERED. WILL REASSESS.
--- NOTE | 2019-09-02 10:38 | NUR ---
MS RN NOTES PATIENT REFUSES AM LABS. CYLINDER MACHINE OPERATOR WILL BE BACK AT NOON
--- NOTE | 2019-09-02 15:36 | NUR ---
SW NOTE: SW received a call from director of community services stating that pt wanted to speak to a SW. SW contacted pt and pt stated he did not want to speak to the secondary social studies teacher and was just trying to get the attention of a nurse.
[2019-09-02 16:00] VITALS: BP 124/75
--- NOTE | 2019-09-02 18:47 | NUR ---
MS RN CLOSING NOTES PATIENT REMAINS IN BED, AWAKE, A/O X3. PATIENT IS ON ROOM AIR; BREATHING IS EVEN AND UNLABORED; NO SOB PRESENT AT THIS TIME. NO COMPLAINS OF PAIN AT THE MOMENT. PAIN AND ANXIETY HAVE BEEN TREATED WITH PRN PAIN MEDICATIONS. PATIENT IS MISSING IV ACCESS. PER CROWN BUFFER NURSE HE REFUSES AN IV ACCESS AND MD IS AWARE. COLOSTOMY BAG PRESENT AND SUPRAPUBIC CATH IS IN PLACE. PATIENT EMPTIES THE BAG HIMSELF. ALL NEEDS ATTENDED TO THROUGHOUT THE DAY. AT THIS TIME PATIENT IS AWAITING PLACEMENT. SAFETY PRECAUTIONS REMAIN IN PLACE; BED IN LOW POSITION AND LOCKED, RAILS UP X2, CALL LIGHT WITHIN REACH. WILL ENDORSE TO CROWN BUFFER NURSE.
--- NOTE | 2019-09-02 19:00 | NUR ---
MS RN OPENING NOTES: RECEIVED PT ON ROOM AIR AND IS TOLERATING WELL. PT IS WATCHING TELEVISION AT THIS TIME AND IS SITTING UP. PT HAS COLOSTOMY BAG ON LLQ AND HAS SUPRAPUBIC CATH ON RLQ DRAINING URINE. NO SOB NOTED. NO S/S OF DISTRESS. PT HAS NO IV ACCESS AT THIS TIME. BED KEPT IN LOW, LOCKED POSITION, AND SIDE RAILS X 2UP. INSTRUCTED PT TO USE CALL LIGHT FOR ASSISTANCE. WILL CONTINUE TO MONITOR PT.
[2019-09-02 20:15] VITALS: BP 136/88
[2019-09-02] MEDS: ZOLPIDEM TARTRATE 5 MG TABLET PO PRN (20:49)
--- NOTE | 2019-09-02 20:56 | NUR ---
MS RN NOTES: PT REQUESTING FOR SLEEPING PILL. PT WAS ADMINISTERED AMBIEN 5MG PO. WILL CONTINUE TO MONITOR.
[2019-09-02] MEDS: HYDROGEL DRESSING 90 GM TUBE TP SCH (21:18)
[2019-09-02] MEDS: DAKINS QUARTER STRENGTH (0.125%) 480 ML BOTTLE TOP SCH (21:18)
--- NOTE | 2019-09-02 21:18 | NUR ---
MS RN NOTES: PT REQUESTING FOR WOUND TX TO BE POSTPONED AT A DIFFERENT TIME HE JUST TOOK A SLEEPING PILL AND WANTS TO SLEEP.
[2019-09-03 00:09] VITALS: BP 135/79
[2019-09-03] MEDS: HYDROCODONE/APAP 5/325MG 1 EACH TABLET PO PRN ×4 (00:11→22:12)
--- NOTE | 2019-09-03 00:14 | NUR ---
MS RN NOTES: PT VERY IRRITABLE. PT COMPLAINING OF 10/10 GENERALIZED ACHY PAIN. PT WAS ADMINISTERED NORCO 5 PO. WILL CONTINUE TO MONITOR.
--- NOTE | 2019-09-03 00:38 | NUR ---
MS RODRIGUEZ NOTES: PT ALLOWED FOR WOUND TX ON L ELBOW ONLY. CLEANSED WITH NS AND APPLIED XEROFORM AND DRY GAUZE.
--- NOTE | 2019-09-03 02:41 | NUR ---
MS RN NOTES: PT COMPLAINING OF HEADACHE. PT WAS ADMINISTERED TYLENOL 650MG PO. WILL CONTINUE TO MONITOR.
[2019-09-03 03:00] VITALS: BP 114/65
[2019-09-03] MEDS: LORAZEPAM 1 MG TABLET PO PRN ×3 (03:01→23:37)
--- NOTE | 2019-09-03 03:05 | NUR ---
MS RN NOTES: PT SAYING HE FEELS ANXIOUS. PT VERBALIZES "I FEEL SCARED." PT WAS ADMINISTERED ATIVAN 1MG PO. WILL CONTINUE TO MONITOR.
--- NOTE | 2019-09-03 06:55 | NUR ---
MS RN NOTES: PT REFUSED LABS THIS AM.
--- NOTE | 2019-09-03 07:02 | NUR ---
MS RN CLOSING NOTES: ALL NEEDS WERE ATTENDED AND ANTICIPATED FOR. PT REFUSED WOUND CARE OTHER THAN THE L ELBOW. PT ALSO REFUSED LABS THIS AM. PT HAS NO IV ACCESS AT THIS TIME. PT ON ROOM AIR AND SATURATING WELL. PT HAS SUPRAPUBIC CATH AND IS ATTACHED TO DRAINAGE BAG. OUTPUT WAS 1600ML. PT ALSO HAS COLOSTOMY BAG. 250ML WAS EMPTIED OUT. BED KEPT IN LOW, LOCKED POSITION, AND SIDE RAILS X 2 UP. INSTRUCTED PT TO USE CALL LIGHT. ENDORSED TO, KAT RODRIGUEZ FOR DEB.
--- NOTE | 2019-09-03 07:23 | NUR ---
MS RN NOTES: RECEIVED PATIENT IN BED RESTING COMFORTABLY IN MODERATE HIGH BACK REST. A/O X3. ABLE TO MAKE NEEDS KNOWN. ON RA, TOLERATING WELL, NO SIGNS OF DISTRESS NOTED AT THIS TIME, PER EXTRUSION DIE CORRECTOR NURSE PATIENT IS NON COMPLIANT, REFUSED WOUND CARE AND LABS THIS AM. NO IV ACCESS, PATIENT REFUSED. NOTED WITH SUPRAPUBIC CATH AND IS ATTACHED TO DRAINAGE BAG. PT ALSO HAS COLOSTOMY BAG. SAFETY MEASURES IN PLACE, BED KEPT IN LOW, LOCKED POSITION, AND SIDE RAILS X 2 UP. CALL LIGHT WITHIN REACH. WILL CONTINUE TO MONITOR.
[2019-09-03] MEDS: DAKINS QUARTER STRENGTH (0.125%) 480 ML BOTTLE TOP SCH (08:10)
[2019-09-03] MEDS: HYDROGEL DRESSING 90 GM TUBE TP SCH (08:11)
[2019-09-03 16:00] VITALS: BP 128/75
--- NOTE | 2019-09-03 16:17 | NUR ---
RN NOTES PATIENT IS NON COMPLIANT, REFUSED LAB AND WOUND CARE, EXPLAINED RISKS AND BENEFITS BUT STILL REFUSED. WILL CONTINUE TO MONITOR.
--- NOTE | 2019-09-03 18:31 | NUR ---
MS RN NOTES: PATIENT IN BED RESTING COMFORTABLY IN MODERATE HIGH BACK REST. A/O X3. ABLE TO MAKE NEEDS KNOWN. ON RA, TOLERATING WELL, NO SIGNS OF DISTRESS NOTED THROUGHOUT THE SHIFT, NO IV ACCESS, MD AWARE, REFUSED LABS, NOTED WITH SUPRAPUBIC CATH AND IS ATTACHED TO DRAINAGE BAG. PT ALSO HAS COLOSTOMY BAG. SAFETY MEASURES IN PLACE, BED KEPT IN LOW, LOCKED POSITION, AND SIDE RAILS X 2 UP. CALL LIGHT WITHIN REACH. WILL ENDORSE TO SUPERINTENDENT OF GENERATION NURSE FOR DEB.
--- NOTE | 2019-09-03 19:15 | NUR ---
MS RN NOTES: RECEIVED PT IN BED AWAKE AND ABLE TO MAKE NEEDS KNOWN. PT A/O 3. RESPIRATIONS EVEN AND UNLABORED WITH NO S/S OF ACUTE DISTRESS OR SOB NOTED. NO COMPLAINTS OF PAIN AT THIS TIME. NO IV ACCESS AT THIS TIME, PT REFUSES. PT NOTED WITH SUPRAPUBIC CATH, DRAINING WELL. PT ALSO NOTED WITH COLOSTOMY BAG. SAFETY MEASURES IN PLACE, BED KEPT IN LOWEST, LOCKED POSITION, WITH SIDE RAILS X 2 UP. CALL LIGHT WITHIN REACH. WILL CONTINUE TO MONITOR.
[2019-09-03 20:00] VITALS: BP 117/75
[2019-09-03] MEDS: ZOLPIDEM TARTRATE 5 MG TABLET PO PRN (20:58)
--- NOTE | 2019-09-03 21:10 | NUR ---
MS RN NOTES PT YELLING AND BEING VERBALLY ABUSIVE. WILL CONTINUE TO MONITOR.
--- NOTE | 2019-09-03 22:10 | NUR ---
MS RN NOTES PT PLAYING MUSIC LOUDLY, ASKED PT TO TURN IT DOWN, AND PT REFUSED. PT STATED "IT HELPS ME RELAX." WILL CONTINUE TO MONITOR.
[2019-09-04] MEDS: HYDROCODONE/APAP 5/325MG 1 EACH TABLET PO PRN ×2 (02:50→03:04)
[2019-09-04] MEDS ORDERED: MORPHINE SULFATE INJ 2 MG/ML DISP.SYRIN IV ONE (07:30)
--- NOTE | 2019-09-04 07:30 | NUR ---
MS RN NOTES PATIENT REFUSED V/S
[2019-09-04] MEDS: DAKINS QUARTER STRENGTH (0.125%) 480 ML BOTTLE TOP SCH (09:48)
[2019-09-04] MEDS: HYDROGEL DRESSING 90 GM TUBE TP SCH (09:48)
--- NOTE | 2019-09-04 10:20 | NUR ---
MS RN NOTES PATIENT REFUSED DEBRIDEMENT
[2019-09-04] MEDS: LORAZEPAM 1 MG TABLET PO PRN (10:46)
[2019-09-04 11:00] VITALS: BP 99/60
--- NOTE | 2019-09-04 11:17 | NUR ---
MS RN NOTES PATIENT REFUSED DISCHARGE INSTRUCTIONS TO BE EXPLAINED.
--- NOTE | 2019-09-04 12:00 | NUR ---
MS RN NOTES PATIENT FOR DISCHARGE. REFUSED TO LISTEN TO DISCHARGE INSTRUCTIONS. NO S/S OF RESPIRATORY DISTRESS. ALAMO CATHETER INTACT DRAINING YELLOW COLORED URINE. NO IV ACCESS. ALL BELONGINGS ACCOUNTED. PATIENT PICKED UP BY AMBULANCE ACCOMPANIED BY 2 EMT. LEFT IN STABLE CONDITION VIA GURNEY.
[2019-09-05 07:06] LABS: *SPE A/G RATIO 0.7 (0.7-1.7); *SPE ALBUMIN 2.9 g/dL (2.9-4.4); *SPE ALPHA-1-GLOBULIN 0.4 g/dL (0.0-0.4); *SPE ALPHA-2-GLOBULIN 0.9 g/dL (0.4-1.0); *SPE BETA GLOBULIN 1.2 g/dL (0.7-1.3); *SPE GLOBULIN, TOTAL 4.1 g/dL (2.2-3.9); *SPE M-SPIKE Not Observed g/dL (Not Observed); *SPEGAMMA GLOBULIN 1.6 g/dL (0.4-1.8)
== END 2019-09-04 12:00 | disposition home or self-care (01) | DRG 640 ==
LOC: ER 01:41 → TELE 02:55 → MED 09:41
DX: E86.0 Dehydration (principal); L89.324 Pressure ulcer of left buttock, stage 4; L89.314 Pressure ulcer of right buttock, stage 4; L89.024 Pressure ulcer of left elbow, stage 4; L89.154 Pressure ulcer of sacral region, stage 4; D68.59 Other primary thrombophilia; G82.20 Paraplegia, unspecified; Z74.09 Other reduced mobility; Z59.0 Homelessness; Z89.612 Acquired absence of left leg above knee; Z89.611 Acquired absence of right leg above knee; Z93.3 Colostomy status; Z90.49 Acquired absence of other specified parts of digestive tract; Z87.891 Personal history of nicotine dependence; Z88.1 Allergy status to other antibiotic agents; I25.2 Old myocardial infarction; F41.9 Anxiety disorder, unspecified; Z76.5 Malingerer [conscious simulation]; I73.9 Peripheral vascular disease, unspecified; N31.9 Neuromuscular dysfunction of bladder, unspecified; F19.90 Other psychoactive substance use, unspecified, uncomplicated; D50.9 Iron deficiency anemia, unspecified; Z86.14 Personal history of Methicillin resistant Staphylococcus aureus infection; Z98.890 Other specified postprocedural states; M62.48 Contracture of muscle, other site; L89.136 Pressure-induced deep tissue damage of right lower back; S30.91XA Unspecified superficial injury of lower back and pelvis, initial encounter; X58.XXXA Exposure to other specified factors, initial encounter; Y92.9 Unspecified place or not applicable; T87.89 Other complications of amputation stump; Y83.5 Amputation of limb(s) as the cause of abnormal reaction of the patient, or of later complication, without mention of misadventure at the time of the procedure
CPT/HCPCS: 36415; 80048-TC; 83735-TC; 84100-TC; 84155; 84165; 84484-TC; 85025-TC; 87081-TC; A6248; A6253; A6403; G0378; J2060; J2270; J3475; J7030; Q0163